=== PATIENT | female | born 1950 | race Caucasian/White ===

== ENCOUNTER 2021-08-06 20:02 | Inpatient (IN) | payer MEDICARE, OTHER, SELFPAY ==
[2021-08-06] VITALS (9 sets, daily range): BP systolic 85–104; BP diastolic 38–59; PULSE 96–100; RESP 20–24; TEMP 36.8–37.4; O2SAT 97; BMI 34.5
--- NOTE | 2021-08-06 | ECG_ITS ---
Test Reason : WEAKNESS Blood Pressure : / mmHG Vent. Rate : 098 BPM Atrial Rate : 098 BPM P-R Int : 150 ms QRS Dur : 102 ms QT Int : 362 ms P-R-T Axes : 054 016 -09 degrees QTc Int : 462 ms Normal sinus rhythm Nonspecific ST and T wave abnormality Abnormal ECG No previous ECGs available Referred By: Radha Yuan Electronically Signed By:YOHAN DENISE
--- NOTE | ~2021-08-06 | CT_ITS ---
EXAMINATION: CT ABDOMEN AND PELVIS WITHOUT CONTRAST CLINICAL INFORMATION: GI bleed. Drinker. Large liver. Rule out mass. COMPARISON: None TECHNIQUE: Multidetector volumetric imaging was performed from the superior aspect of the liver through the pubic symphysis. Sagittal and coronal reformatted images were obtained on the technologist's workstation. This CT examination was performed using dose optimization techniques as appropriate, variously including the following: *Automated exposure control *Adjustment of mA and/or kV according to patient size (this includes techniques or standardized protocols for targeted exams where dose is matched to indication/reason for exam; i.e. extremities or head) *Use of iterative reconstruction technique DLP: 654 mGy-cm FINDINGS: LUNG BASES: Bibasilar atelectasis noted. Coronary artery calcifications. LIVER, GALLBLADDER, AND BILIARY TREE: The liver is normal in size, shape, and attenuation. No focal hepatic lesion or biliary ductal dilatation is present. The gallbladder is unremarkable with no evidence of radiopaque gallstones, gallbladder wall thickening, or obvious pericholecystic inflammatory changes. PANCREAS: Unremarkable. SPLEEN: Unremarkable. ADRENAL GLANDS: Bilateral adrenal nodularity, meeting criteria for lipid rich adenomas. KIDNEYS AND URETERS: The kidneys are normal in size, shape, and attenuation. No hydronephrosis, hydroureter, or calculi seen. No perinephric stranding. BLADDER: Unremarkable. GASTROINTESTINAL TRACT: The stomach is unremarkable. Normal caliber small bowel. No obstruction. No colonic wall thickening or acute inflammation. Prominent sigmoid diverticulosis. No diverticulitis. There is a normal appendix. No free air or free fluid. ABDOMINAL WALL: No significant hernia is appreciated. LYMPH NODES: Normal. VASCULAR: Unremarkable. PELVIC VISCERA: The uterus and adnexa are unremarkable. OSSEOUS STRUCTURES: No acute or suspicious osseous abnormality. Moderate degenerative change throughout the spine. Mild degenerative changes in the hips. CT/CT abdomen pelvis wo con IMPRESSION: No suspicious findings in the abdomen or pelvis. No liver mass. Normal size liver. Colonic diverticulosis without diverticulitis.
--- NOTE | ~2021-08-06 | XR_ITS ---
EXAMINATION: XR CHEST CLINICAL INFORMATION: Shortness of breath COMPARISON: None TECHNIQUE: Frontal view of the chest was obtained. FINDINGS: No significant abnormality is noted involving the heart, lungs, mediastinum, bony thorax or soft tissues. XR/XR chest 1V IMPRESSION: Unremarkable examination.
--- NOTE | 2021-08-06 20:27 | PC.NURSE ---
at bedside for primary eval.
--- NOTE | 2021-08-06 20:42 | ED.AMS ---
HPI - Altered Mental Status General Chief Complaint: Altered Mental Status Stated Complaint: nausea vomiting x 1 day Time Seen by Provider: 08/06/21 20:19 Source: patient History of Present Illness HPI narrative: Patient is 71 years old presented today with having nausea vomiting diarrhea earlier as reported by family. Positive generalized malaise weakness. Patient lives with an elderly . Patient now denies that she has any nausea vomiting diarrhea. No fever no chills. No cough no congestion. No diaphoresis. Patient is from home. Denies any surgery done to her abdomen. Did not have her vaccine for coronavirus. No coughing no change in smell or taste. Positive generalized malaise. No pain on urination. Related Data Home Medications Medication Instructions Recorded Confirmed amlodipine 10 mg tablet 10 mg PO DAILY 08/06/21 08/06/21 aspirin 500 mg tablet 500 mg PO BID 08/06/21 08/06/21 cyanocobalamin (vitamin B-12) 500 500 mcg PO DAILY 08/06/21 08/06/21 mcg tablet (Vitamin B-12) lisinopril 40 mg tablet 40 mg PO DAILY 08/06/21 08/06/21 metoprolol tartrate 100 mg tablet 100 mg PO BID 08/06/21 08/06/21 Allergies Allergy/AdvReac Type Severity Reaction Status Date / Time No Known Allergies Allergy Verified 08/06/21 20:28 Review of Systems Review of Systems: No fever no chills no chest pain No diaphoresis All systems reviewed otherwise [facility] Past Medical History Medical History (Updated 08/07/21 @ 00:28 by Radha Yuan MD) Hyperlipidemia Hypertension Social History Social History Advance Directives: No Advance Directives Information Provided: Yes Physical Exam Vital Signs: Vital Signs: Last Vital Signs Temp 98.9 F 08/07/21 00:09 Pulse 99 08/07/21 00:09 Resp 20 08/07/21 00:09 BP 109/49 L 08/07/21 00:09 Pulse Ox 97 08/06/21 21:23 Body Mass Index 34.5 Appearance: Alert. Oriented self and to time No acute distress. Eyes: Pupils equal, round and reactive to light. ENT: Pharynx normal. Neck: Normal inspection. Neck supple. No lymph nodes noted. No crepitus CVS: Normal heart rate and rhythm. Pulses normal. Normal S1 and S2 Respiratory: No respiratory distress. Breath sounds normal. No Wheezing. No rales Abdomen: Soft and nontender. No rigidity. No distention. good BS x4 Skin: Skin warm and dry. Normal skin color. Normal skin turgor. Extremities: 3+ pitting edema bilateral lower extremity. Neurovascular intact to all extremities. No Lacerations. No Rash Neuro: Oriented to self and time. No motor deficit. No sensory deficit. Weakness in bilateral lower extremity. No slurred speech MDM - Altered Mental Status MDM Narrative Medical decision making narrative: Patient's initial blood pressure was 98/50. IV fluids ordered. Hemoglobin came back patient's hemoglobin is 3.4. Rectal exam shows melanotic stool. At this point discussed with patient. And family. Patient has a long history of drinking alcohol. Also has a long history of abusing aspirin pre taking about a g a day. Patient's BUN and creatinine is 41 and 0.6. Along with a melanotic stool consistent with having a significant upper GI bleed. Patient was started on Protonix IV 80 mg. Additional octreotide was given. Patient given 1 unit of uncross blood. As patient's blood pressure was low dropping down to 80/40. In addition patient had 2 more units to be transfused at out type and cross. Patient's case discussed with family. Understood the risk and benefit of the transfusion. Give permission for the transfusion. is a full code. Additional FFP and also platelets were ordered. Patient's blood pressure returning to 100/60. ICU notified. Patient will need further transfusion. An IJ was placed on the right side. Blood is going in at this point. Patient symptomatic be improving. After 2 units of blood patient symptoms improving. No distress. Awaiting ICU. Blood pressure 100/50. Lab Data Result diagrams: 08/06/21 21:55 08/06/21 21:55 Labs: Lab Results 08/06/21 08/06/21 08/06/21 Range/Units 21:08 21:16 21:16 WBC (4.8-10.8) X10*3/uL RBC (4.20-5.50) X10*6/uL Hgb (12.0-16.0) g/dl Hct (37-47) % MCV (80-98) fL MCH (27.0-33.0) pg MCHC (31.0-35.0) g/dl RDW (11.0-16.0) % Plt Count (160-400) X10*3/uL MPV (9.4-12.3) fL Immature Gran % (Auto) (0.0-0.4) % Neut % (Auto) (45-73) % Lymph % (Auto) (20-40) % [place] % (Auto) (2-11) % Eos % (Auto) (0-4) % Baso % (Auto) (0-2) % Lymph # (Auto) (1.2-4.9) X10*3/uL [place] # (Auto) (0.1-1.2) X10*3/uL Eos # (Auto) (0.0-0.4) X10*3/uL Baso # (Auto) (0.0-0.2) X10*3/uL Abs Immat Gran (auto) (0.00-0.03) X10*3/uL Absolute Neuts (auto) (2.0-8.3) X10*3/uL Absolute Nucleated RBC (0.0-0.012) X10*3/uL Nucleated RBC % (auto) (0.0-0.2) /100WBC Sodium (135-145) mmol/L Potassium (3.3-5.1) mmol/L Chloride (96-108) mmol/L Carbon Dioxide (22-29) mmol/L Anion Gap (12-20) BUN (9-16) mg/dL Creatinine (0.5-1.4) mg/dL Estim Creat Clear Calc Estimated GFR POC Glucose 99 (60-115) mg/dL Random Glucose (60-115) mg/dL Lactic Acid (0.5-2.0) mmol/L Calcium (8.4-10.2) mg/dL Total Bilirubin (0.0-1.0) mg/dL Direct Bilirubin (0.0-0.5) mg/dL AST (5-31) U/L ALT (0-31) U/L Alkaline Phosphatase (39-117) U/L Total Protein (6.5-8.0) g/dL Albumin (3.5-5.0) g/dL Urine Color YELLOW Urine Appearance CLEAR Urine pH 6.0 (5.0-8.0) Ur Specific [place] 1.010 (1.005-1.025) Urine Protein NEG (NEG-TRACE) MG/DL Urine Glucose (UA) NEG (NEG) MG/DL Urine Ketones NEG (NEG) MG/DL Urine Blood NEG (NEG) Urine Nitrite NEG (NEG) Ur Leukocyte Esterase NEG (NEG) Ethyl Alcohol mg/dL Coronavirus (PCR) NEGATIVE (Negative) Influenza Type A (PCR) NEGATIVE (Negative) Influenza Type B (PCR) NEGATIVE (Negative) RSV RNA Qual (PCR) NEGATIVE (Negative) Blood Type Antibody Screen Crossmatch 08/06/21 08/06/21 08/06/21 Range/Units 21:55 21:55 21:55 WBC 9.9 (4.8-10.8) X10*3/uL RBC 0.94 L (4.20-5.50) X10*6/uL Hgb 3.4 L* (12.0-16.0) g/dl Hct 10.4 L* (37-47) % MCV 110.6 H (80-98) fL MCH 36.2 H (27.0-33.0) pg MCHC 32.7 (31.0-35.0) g/dl RDW 15.3 (11.0-16.0) % Plt Count 184 (160-400) X10*3/uL MPV 9.6 (9.4-12.3) fL Immature Gran % (Auto) 0.7 H (0.0-0.4) % Neut % (Auto) 82.6 H (45-73) % Lymph % (Auto) 11.0 L (20-40) % [place] % (Auto) 5.6 (2-11) % Eos % (Auto) 0.0 (0-4) % Baso % (Auto) 0.1 (0-2) % Lymph # (Auto) 1.1 L (1.2-4.9) X10*3/uL [place] # (Auto) 0.6 (0.1-1.2) X10*3/uL Eos # (Auto) 0.0 (0.0-0.4) X10*3/uL Baso # (Auto) 0.0 (0.0-0.2) X10*3/uL Abs Immat Gran (auto) 0.07 H (0.00-0.03) X10*3/uL Absolute Neuts (auto) 8.2 (2.0-8.3) X10*3/uL Absolute Nucleated RBC 0.020 H (0.0-0.012) X10*3/uL Nucleated RBC % (auto) 0.2 (0.0-0.2) /100WBC Sodium 128 L (135-145) mmol/L Potassium 4.4 (3.3-5.1) mmol/L Chloride 100 (96-108) mmol/L Carbon Dioxide 21 L (22-29) mmol/L Anion Gap 11 L (12-20) BUN 41 H (9-16) mg/dL Creatinine 0.60 (0.5-1.4) mg/dL Estim Creat Clear Calc 87.3 Estimated GFR > 60 POC Glucose (60-115) mg/dL Random Glucose 118 H (60-115) mg/dL Lactic Acid (0.5-2.0) mmol/L Calcium 9.2 (8.4-10.2) mg/dL Total Bilirubin 0.3 (0.0-1.0) mg/dL Direct Bilirubin < 0.2 (0.0-0.5) mg/dL AST 20 (5-31) U/L ALT 14 (0-31) U/L Alkaline Phosphatase 45 (39-117) U/L Total Protein 4.8 L (6.5-8.0) g/dL Albumin 3.1 L (3.5-5.0) g/dL Urine Color Urine Appearance Urine pH (5.0-8.0) Ur Specific [place] (1.005-1.025) Urine Protein (NEG-TRACE) MG/DL Urine Glucose (UA) (NEG) MG/DL Urine Ketones (NEG) MG/DL Urine Blood (NEG) Urine Nitrite (NEG) Ur Leukocyte Esterase (NEG) Ethyl Alcohol < 10 mg/dL Coronavirus (PCR) (Negative) Influenza Type A (PCR) (Negative) Influenza Type B (PCR) (Negative) RSV RNA Qual (PCR) (Negative) Blood Type Antibody Screen Crossmatch 08/06/21 08/06/21 Range/Units 22:20 22:30 WBC (4.8-10.8) X10*3/uL RBC (4.20-5.50) X10*6/uL Hgb (12.0-16.0) g/dl Hct (37-47) % MCV (80-98) fL MCH (27.0-33.0) pg MCHC (31.0-35.0) g/dl RDW (11.0-16.0) % Plt Count (160-400) X10*3/uL MPV (9.4-12.3) fL Immature Gran % (Auto) (0.0-0.4) % Neut % (Auto) (45-73) % Lymph % (Auto) (20-40) % [place] % (Auto) (2-11) % Eos % (Auto) (0-4) % Baso % (Auto) (0-2) % Lymph # (Auto) (1.2-4.9) X10*3/uL [place] # (Auto) (0.1-1.2) X10*3/uL Eos # (Auto) (0.0-0.4) X10*3/uL Baso # (Auto) (0.0-0.2) X10*3/uL Abs Immat Gran (auto) (0.00-0.03) X10*3/uL Absolute Neuts (auto) (2.0-8.3) X10*3/uL Absolute Nucleated RBC (0.0-0.012) X10*3/uL Nucleated RBC % (auto) (0.0-0.2) /100WBC Sodium (135-145) mmol/L Potassium (3.3-5.1) mmol/L Chloride (96-108) mmol/L Carbon Dioxide (22-29) mmol/L Anion Gap (12-20) BUN (9-16) mg/dL Creatinine (0.5-1.4) mg/dL Estim Creat Clear Calc Estimated GFR POC Glucose (60-115) mg/dL Random Glucose (60-115) mg/dL Lactic Acid 1.8 (0.5-2.0) mmol/L Calcium (8.4-10.2) mg/dL Total Bilirubin (0.0-1.0) mg/dL Direct Bilirubin (0.0-0.5) mg/dL AST (5-31) U/L ALT (0-31) U/L Alkaline Phosphatase (39-117) U/L Total Protein (6.5-8.0) g/dL Albumin (3.5-5.0) g/dL Urine Color Urine Appearance Urine pH (5.0-8.0) Ur Specific [place] (1.005-1.025) Urine Protein (NEG-TRACE) MG/DL Urine Glucose (UA) (NEG) MG/DL Urine Ketones (NEG) MG/DL Urine Blood (NEG) Urine Nitrite (NEG) Ur Leukocyte Esterase (NEG) Ethyl Alcohol mg/dL Coronavirus (PCR) (Negative) Influenza Type A (PCR) (Negative) Influenza Type B (PCR) (Negative) RSV RNA Qual (PCR) (Negative) Blood Type O Negative Antibody Screen NEGATIVE Crossmatch See Detail Critical Care Time Critical Care Time Critical Care Time: Yes Total Critical Care Time: 120 Attestation: I have personally provided 120 minutes of critical care time exclusive of time spent on separately billable procedures. Time includes review of lab data, radiology results, discussion with consultants, and monitoring for potential decompensation. Interventions were performed as documented above Discharge Plan Discharge Clinical Impression: Acute GI bleeding Patient Disposition: Admitted As Inpatient
[2021-08-06] MEDS: 0.9 % Sodium Chloride 500 ML 999 ML IV (21:19)
--- NOTE | 2021-08-06 21:30 | PC.NURSE ---
Addendum entered by Any Kapadia 08/07/21 00:04: MD at bedside for OBS, obvious melena noted during exam. Per MD, no need to send OBS card. This RN chaperoning during exam, pt tolerating exam fair. Original Note: IV established, IVF infusing per MAR. Labs obtained and sent for analysis. Lab notifying this RN of critically low HgB, lab requesting redraw to confirm. EKG, labs, BCX, lactic and Covid swab obtained and sent.
[2021-08-06 21:43] LABS: Appearance Urine CLEAR; Color Urine YELLOW; Glucose Urine UA NEG (NEG); Leukocyte Esterase Urine NEG (NEG); Nitrite Urine NEG (NEG); Urine Blood NEG (NEG); Urine Ketones NEG (NEG); Urine Protein NEG (NEG-TRACE)
--- NOTE | 2021-08-06 22:00 | PC.NURSE ---
MD aware of hypotension.
[2021-08-06 22:01] LABS: MANUAL DIFF FLAG NO
[2021-08-06 22:12] LABS: Basophils Percent Auto 0.1 % (0-2); Imm Gran Abs Auto 0.07 X10*3/uL (0.00-0.03); Imm Gran Pct Auto 0.7 % (0.0-0.4); Lymphocytes Absolute Auto 1.1 X10*3/uL (1.2-4.9); Mean Corpuscular HGB Conc 32.7 g/dl (31.0-35.0); Mean Corpuscular Hemoglobin 36.2 pg (27.0-33.0); Mean Corpuscular Volume 110.6 fL (80-98); Mean Platelet Volume 9.6 fL (9.4-12.3); Monocytes Absolute Auto 0.6 X10*3/uL (0.1-1.2); Monocytes Percent Auto 5.6 % (2-11); NRBC Pct Auto 0.2 /100WBC (0.0-0.2); Neutrophils Absolute Auto 8.2 X10*3/uL (2.0-8.3); Neutrophils Percent Auto 82.6 % (45-73); Platelet Count 184 X10*3/uL (160-400); Red Blood Count 0.94 X10*6/uL (4.20-5.50); Red Cell Distribution Width 15.3 % (11.0-16.0); White Blood Count 9.9 X10*3/uL (4.8-10.8)
[2021-08-06 22:17] LABS: Hematocrit 10.4 % (37-47); Hemoglobin 3.4 g/dl (12.0-16.0)
[2021-08-06 22:27] LABS: Alanine Aminotransferase 14 U/L (0-31); Albumin Level 3.1 g/dL (3.5-5.0); Alkaline Phosphatase 45 U/L (39-117); Anion Gap 11 (12-20); Aspartate Amino Transferase 20 U/L (5-31); Bilirubin Direct < 0.2 mg/dL (0.0-0.5); Bilirubin Total 0.3 mg/dL (0.0-1.0); Blood Urea Nitrogen 41 mg/dL (9-16); Calcium 9.2 mg/dL (8.4-10.2); Carbon Dioxide 21 mmol/L (22-29); Chloride 100 mmol/L (96-108); Creatinine Clr Calc Pharmacy 87.3; Estimated Glomerular Filt Rate > 60; Glucose Random 118 mg/dL (60-115); Potassium 4.4 mmol/L (3.3-5.1); Sodium 128 mmol/L (135-145); Total Protein 4.8 g/dL (6.5-8.0)
[2021-08-06] MEDS: Pantoprazole Sodium 40 MG/10 ML VIAL 80 MG IVPUSH (22:35)
[2021-08-06] MEDS: Octreotide Acetate 100 MCG/ML AMPUL IVPUSH (22:35)
[2021-08-06] MEDS: 0.9 % Sodium Chloride 1,000 ML 999 ML IV (22:36)
[2021-08-06 22:47] LABS: Ethanol < 10 mg/dL
--- NOTE | 2021-08-06 22:52 | PC.NURSE ---
MD at bedside, plan for ICU admission.
--- NOTE | 2021-08-06 22:56 | PC.NURSE ---
ICU PA at bedside for primary eval.
[2021-08-06 22:58] LABS: Lactic Acid 1.8 mmol/L (0.5-2.0)
--- NOTE | 2021-08-06 23:05 | PC.NURSE ---
Jacinto Mario, () to be called with updates and plan of care.
[2021-08-06 23:13] LABS: Influenza A PCR NEGATIVE (Negative); Influenza B PCR NEGATIVE (Negative); Resp Syncy Virus RNA Qual PCR NEGATIVE (Negative); SARS COV2 PCR INHOUSE NEGATIVE (Negative)
--- NOTE | 2021-08-06 23:17 | PM.CCHP ---
History of Present Illness Date of Service: 08/06/21 Attending physician on admission: Iker Yang Chief Complaint: Chief complaint: Hypovolemic shock, Acute on chronic anemia / UGIB HPI: ?71-year-old female with underlying history of hypertension, B12 deficiency, morbid obesity with BMI of 35, history of chronic alcohol abuse as she drinks over 0.5 gal of wine daily, presented to the emergency room with her with complaints of nausea, vomiting and diarrhea.? Patient has had generalized malaise for approximately 5-7 days and reports she has been sleeping a lot and has been difficult to arouse over last couple of days this has gotten worse.? He reports noticing black tarry stools in the toilet which according to the patient has been present for about 5 days or so.? Patient denies abdominal pain, admits taking aspirin, has never had a GI bleed before, In the emergency room the patient was noted to be confused, hypotensive with blood pressure of 96/42 but not tachycardic, other vital signs were stable.? She had did appear pale, her laboratory workup revealed white count of 9.9, hemoglobin of 3.4 and hematocrit of 10.4 respectively, platelets 184, MCV 110, sodium 128, anion gap of 11, carbon dioxide 21, BUN 41, creatinine 0.60, random glucose 118.? Lactic acid 1.8.? Albumin 3.1.? Urinalysis negative.? Respiratory panel negative.? Rectal exam was done but he was a very eminent the patient had melena leak black stools and was not sent for occult blood study.? Patient received 1 unit of universal blood products in the ER and albumin, 2 L of IV fluids and despite of this the patient continues to be hypotensive however so long she lays down she denies any symptomatology at this point. ROS:? Denies headache, no visual changes, ?admits to lightheadedness, but no dizziness, no history of seizures or strokes, no history of eye or ear problems, no sore throat, cough or sputum production, denies shortness of breath, denies chest pain, palpitations, no coronary disease, pulmonary disease, no hemoptysis, Admits to melena stools x 5 to 7 days, no hematochezia,no liver or kidney problems, no dysuria, hematuria, she has had crhonic leg edema for > 20 years; ?leg swelling, no history of DVT or PE.? She has no travel and has not been contact with anybody with? COVID.? All other review of systems negative. Past Medical History: ?As above Past Surgical History:? None Family history: ?Noncontributory Social History:? Lives at home with her on a 3rd floor of the house, does have plenty of stairs, does not use a walker or cane, denies tobacco or drugs.? Patient does have a long history of alcohol consumption, did not want to disclose how many years but her states that she has been drinking for more than a decade more than half of gal of wine daily, last drink was yesterday. CODE STATUS: ?Full code Allergies: ?Morphine (hives and difficulty breathing), penicillin (itching). Home Medications:? Please see med rec PHYSICAL EXAM: VS: ?BP 90/44, heart rate 100, respirations 20, O2 sat 96% on room air, temperature 98.1? General:? Alert oriented x3 no acute distress.? Although intermittently appears to get slightly confused and self corrects.? Speaking full sentences.? Speech is well articulated, thought process is coherent.? Following all commands. Skin:? Facial skin color is pale, Hyperpigmented changes of the bilateral lower extremities right more than left over the tibial areas without any ulcerations or blisters.? 1+ pitting edema bilaterally up to mid tibia, otherwise intact. HEENT:? Head is normocephalic, atraumatic, pupils equal round reactive to light accommodation bilaterally.? Extraocular movements appear intact.? Buccal mucosa is dry, Neck is supple without lymphadenopathy. Cardiac:? Clear S1-S2, no murmurs rubs or gallops. Pulmonary:? Clear to auscultation, no wheezes, rales or rhonchi. Abdomen:? Protuberant, positive bowel sounds in all 4 quadrants.? Soft, nontender, no rebound or guarding.? Musculoskeletal:? Moving all 4 extremities upon request a major joints, there is no crepitus or tenderness.? The strength is 5/5 bilaterally and throughout all 4 extremities.? There is no leg edema , no calf tenderness , no leg asymmetry.? Gait not assessed at this point. Neurologic:? As above, cranial nerves 2-12 are grossly intact.? No focal deficits noted. Motor strength as above.? Vascular:? 2+ pulses upper and lower extremities distally. SIGNIFICANT LABORATORY DATA:? As above REVIEW OF IMAGES: CT abdomen and pelvis impression No suspicious findings in the abdomen or pelvis.? No liver mass.? Normal size liver.? Colonic diverticulosis without diverticulitis. EKG REVIEW:? Normal sinus rhythm rate 98 beats per minute.? Minimal ST depression in the precordial leads, no ST elevation.? QT 362. No comparison. ASSESSMENT AND PLAN: 1.Hypovolemic shock in the setting of acute on chronic upper GI bleed on patient with daily aspirin intake and alcoholism history. 3. Hypotension due to above despite of 2 L of fluid, albumin and 3 units of packed red blood cells 4. Melena due to upper GI bleed source unknown 5. Chronic alcoholism at risk of withdrawal symptoms 6. Chronic leg edema 7. Metabolic encephalopathy 8. Macrocytic anemia likely due to alcohol abuse rule out B12 and folate deficiency 9. Hypo smaller hypovolemic hyponatremia due to volume depletion 10. Acute kidney injury with BUN to creatinine ratio of 69 11. Hypoalbuminemia 12. Chronic leg edema likely due to hypoalbuminemia but I wonder if there is a lymphedema component. Admit to ICU, vital signs, close monitoring, I's and O's, patient refused a Arrington catheter, she did receive 1 unit of unmatched universal blood, will continue with transfusion, my sense is that she will need at least 5-6 units of it, I do not think the patient needs platelets or fresh frozen plasma this point.? I did check her INR in is normal I do not think she needs vitamin K at this point, there is no evidence of acute hemorrhage.? Patient is getting very irritated am concerned about withdrawal symptoms, I will start her on Librium, folate, thiamine, multivitamin and will check levels to further rule out the possibility of deficiency of these products contributing to macrocytosis.? Will recheck H&H and metabolic panel tonight, will add Mag, phos, thiamine and B12 levels. ?after transfusion as well as tomorrow Keep patient NPO, GI consult in the morning. ?Will hold all her blood pressure medications and aspirin. Will order a CT of the abdomen pelvis to rule out possibility of masses, significant liver abnormalities or stomach changes that could further justify her significant anemia and bleeding. GI PROPHYLAXIS:? IV ppi and octreotide drip DVT PROPHYLAXIS:? Pneumatic stockings; pt with UGIB Critical care time used for critical evaluation of this patient, diagnosis, treatment and coordination of care, review her records and documentation TOTAL CRITICAL CARE TIME 90 MIN . Patient's care was discussed in detail with Dr. Yang.? He is aware of all the above as well as the plan of care for this patient. PMFSH Past Medical History Medical History (Updated 08/07/21 @ 01:48 by Mary Rendon RN) EtOH dependence Hyperlipidemia Hypertension Surgical History Surgical History (Updated 08/07/21 @ 01:48 by Mary Rendon, RN) History of delivery Social History Social History Household Members: Spouse Housing: House Do you presently have visiting nurse or other home services: No Patient Tobacco Use Status: Former Tobacco user Use of substances other than those prescribed or required for medical reasons: No Have you been hit, kicked, punched, or otherwise hurt by someone within the past year? If so, by whom?: No Do you feel safe in your current relationship?: Yes Is there a partner from a previous relationship who is making you feel unsafe now?: No Are you made to feel afraid or neglected: No Advance Directives: No Advance Directives Information Provided: Yes Advance Directives on File: No Do you have thoughts of harming others: None Do you have a plan to hurt others: No Plan Recently lost weight without trying: Unsure Nutrition Risks: On aspiration precautions Patient : No : No Poor oral hygiene: No Meds Allergies Allergy/AdvReac Type Severity Reaction Status Date / Time No Known Allergies Allergy Verified 08/06/21 20:28 Active Medications: Current Medications Pantoprazole Sodium 80 mg/ (Sodium Chloride) 100 mls @ 10 mls/hr IV .Q10H KEYON Octreotide Acetate 500 mcg/ (Sodium Chloride) 501 mls @ 50.1 mls/hr IVCONT .Q10H KEYON Albumin Human ([place]in 25 %) 100 mls @ 100 mls/hr IV Q1H KEYON Stop: 08/07/21 01:14 Home Medications Medication Instructions Recorded Confirmed Last Taken Type amlodipine 10 mg tablet 10 mg PO DAILY 08/06/21 08/06/21 Unknown History aspirin 500 mg tablet 500 mg PO BID 08/06/21 08/06/21 Unknown History cyanocobalamin (vitamin B-12) 500 500 mcg PO DAILY 08/06/21 08/06/21 Unknown History mcg tablet (Vitamin B-12) lisinopril 40 mg tablet 40 mg PO DAILY 08/06/21 08/06/21 Unknown History metoprolol tartrate 100 mg tablet 100 mg PO BID 08/06/21 08/06/21 Unknown History Physical Exam Vital Signs: Vital Signs: Last Vital Signs Temp 99.4 F 08/06/21 23:02 Pulse 100 08/06/21 23:02 Resp 20 08/06/21 23:02 BP 101/38 L 08/06/21 23:02 Pulse Ox 97 08/06/21 21:23 Body Mass Index 34.5 Results Labs CBC and Chem 7: 08/06/21 21:55 08/06/21 21:55 Labs: Laboratory Results - last 24 hr 08/06/21 08/06/21 08/06/21 21:16 21:55 21:55 MCV 110.6 H MCH 36.2 H MCHC 32.7 RDW 15.3 Plt Count 184 MPV 9.6 Immature Gran % (Auto) 0.7 H Neut % (Auto) 82.6 H Lymph % (Auto) 11.0 L [place] % (Auto) 5.6 Eos % (Auto) 0.0 Baso % (Auto) 0.1 Lymph # (Auto) 1.1 L [place] # (Auto) 0.6 Eos # (Auto) 0.0 Baso # (Auto) 0.0 Abs Immat Gran (auto) 0.07 H Absolute Neuts (auto) 8.2 Absolute Nucleated RBC 0.020 H Nucleated RBC % (auto) 0.2 Anion Gap 11 L Estim Creat Clear Calc 87.3 Estimated GFR > 60 Random Glucose 118 H Lactic Acid Calcium 9.2 Total Bilirubin 0.3 Direct Bilirubin < 0.2 AST 20 ALT 14 Alkaline Phosphatase 45 Total Protein 4.8 L Albumin 3.1 L Urine Color YELLOW Urine Appearance CLEAR Urine pH 6.0 Ur Specific [place] 1.010 Urine Protein NEG Urine Glucose (UA) NEG Urine Ketones NEG Urine Blood NEG Urine Nitrite NEG Ur Leukocyte Esterase NEG Ethyl Alcohol Blood Type Antibody Screen Crossmatch 08/06/21 08/06/21 08/06/21 21:55 22:20 22:30 MCV MCH MCHC RDW Plt Count MPV Immature Gran % (Auto) Neut % (Auto) Lymph % (Auto) [place] % (Auto) Eos % (Auto) Baso % (Auto) Lymph # (Auto) [place] # (Auto) Eos # (Auto) Baso # (Auto) Abs Immat Gran (auto) Absolute Neuts (auto) Absolute Nucleated RBC Nucleated RBC % (auto) Anion Gap Estim Creat Clear Calc Estimated GFR Random Glucose Lactic Acid 1.8 Calcium Total Bilirubin Direct Bilirubin AST ALT Alkaline Phosphatase Total Protein Albumin Urine Color Urine Appearance Urine pH Ur Specific [place] Urine Protein Urine Glucose (UA) Urine Ketones Urine Blood Urine Nitrite Ur Leukocyte Esterase Ethyl Alcohol < 10 Blood Type O Negative Antibody Screen NEGATIVE Crossmatch See Detail Imaging Radiologist's Impressions: Impressions Chest X-Ray 08/06/21 20:37 IMPRESSION: Unremarkable examination.
--- NOTE | 2021-08-06 23:19 | PC.NURSE ---
Second unit infusing @ 7269.
[2021-08-06 23:24] LABS: INTERNATIONAL NORM RATIO 1.2 (0.9-1.1); Prothrombin Time 13.2 SEC (9.9-13.0)
[2021-08-06] MEDS: Pantoprazole Sodium 80 MG in 0.9 % Sodium Chloride 80 ML 10 MG IV (23:34)
[2021-08-06] MEDS: Albumin Human 25 % 100 ML IV (23:48)
[2021-08-07] VITALS (25 sets, daily range): BP systolic 88–133; BP diastolic 28–104; PULSE 77–109; RESP 14–24; TEMP 36.6–37.2; O2SAT 90–98; BMI 35.7
[2021-08-07 00:03] LABS: Glucose, Whole Blood 99 mg/dL (60-115)
--- NOTE | 2021-08-07 00:06 | PC.NURSE ---
Third unit infusing @ 0617.
--- NOTE | 2021-08-07 00:10 | PC.NURSE ---
This RN attempting to complete infusion of third unit. Third unit infused @ 0009, VSS. This RN unable to end transfusion, it states unit locked by Blood Bank.
--- NOTE | 2021-08-07 00:19 | PC.NURSE ---
Report given to ICU, ALEXEY Hernandez. Plan for transport to CT and then to ICU.
--- NOTE | 2021-08-07 00:30 | PC.NURSE ---
Pt transferred to CT and to ICU. Third unit continues infusing at this time.
[2021-08-07] MEDS: Octreotide Acetate 500 MCG in 0.9 % Sodium Chloride 500 ML 50.1 MCG IVCONT ×2 (01:24→09:33)
[2021-08-07] MEDS: Albumin Human 25 % 100 ML IV (01:25)
[2021-08-07 01:59] LABS: Hematocrit 21.6 % (37-47); Hemoglobin 7.2 g/dl (12.0-16.0)
[2021-08-07 02:00] LABS: Magnesium 1.5 mg/dL (1.6-2.6)
[2021-08-07 02:41] LABS: Anion Gap 12 (12-20); Blood Urea Nitrogen 36 mg/dL (9-16); Calcium 8.5 mg/dL (8.4-10.2); Carbon Dioxide 19 mmol/L (22-29); Chloride 102 mmol/L (96-108); Creatinine Clr Calc Pharmacy 83.1; Estimated Glomerular Filt Rate > 60; Glucose Fasting 152 mg/dL (60-99); Potassium 4.3 mmol/L (3.3-5.1); Sodium 129 mmol/L (135-145)
[2021-08-07] MEDS: chlordiazePOXIDE HCl 25 MG CAPSULE PO ×4 (03:02→20:33)
[2021-08-07 04:43] LABS: Folate 7.6 ng/mL (> or = 4.0); Vitamin B12 611 pg/mL (200-900)
[2021-08-07 05:44] LABS: MANUAL DIFF FLAG NO
[2021-08-07 05:50] LABS: Basophils Percent Auto 0.2 % (0-2); Hematocrit 23.1 % (37-47); Hemoglobin 7.9 g/dl (12.0-16.0); Lymphocytes Absolute Auto 1.1 X10*3/uL (1.2-4.9); Lymphocytes Percent Auto 10.7 % (20-40); Mean Corpuscular HGB Conc 34.2 g/dl (31.0-35.0); Mean Corpuscular Hemoglobin 34.1 pg (27.0-33.0); Mean Corpuscular Volume 99.6 fL (80-98); Mean Platelet Volume 8.9 fL (9.4-12.3); Monocytes Absolute Auto 0.6 X10*3/uL (0.1-1.2); Monocytes Percent Auto 5.6 % (2-11); NRBC Pct Auto 0.4 /100WBC (0.0-0.2); Neutrophils Absolute Auto 8.2 X10*3/uL (2.0-8.3); Neutrophils Percent Auto 82.5 % (45-73); Platelet Count 116 X10*3/uL (160-400); Red Blood Count 2.32 X10*6/uL (4.20-5.50); Red Cell Distribution Width 14.6 % (11.0-16.0)
--- NOTE | 2021-08-07 06:05 | PC.NURSE ---
Patient admitted via ED approx 0100. Oriented x3, vague to situation. Anxious/resistive to care at times. Recieved 4 units RBCS total between ED and ICU. Hemodynamically stable. Respirations unlabored. Lungs clear. Desats with snoring while sleeping. Purewick draining adequate urine. No stool. Fungal groin/abdominal folds. Requested nystatin from PA. LE 4+ pitting edema with bilat brawny discoloration. No open skin areas.
[2021-08-07 06:14] LABS: Alanine Aminotransferase 14 U/L (0-31); Albumin Level 3.3 g/dL (3.5-5.0); Alkaline Phosphatase 41 U/L (39-117); Anion Gap 11 (12-20); Aspartate Amino Transferase 22 U/L (5-31); Bilirubin Total 1.8 mg/dL (0.0-1.0); Blood Urea Nitrogen 32 mg/dL (9-16); Calcium 8.3 mg/dL (8.4-10.2); Carbon Dioxide 20 mmol/L (22-29); Chloride 103 mmol/L (96-108); Creatinine Clr Calc Pharmacy 86.1; Estimated Glomerular Filt Rate > 60; Glucose Random 173 mg/dL (60-115); Potassium 4.3 mmol/L (3.3-5.1); Sodium 130 mmol/L (135-145); Total Protein 4.7 g/dL (6.5-8.0)
[2021-08-07] MEDS: Phenylephrine HCL 20 MG in 0.9 % Sodium Chloride 250 ML 33.53 MG IVCONT (07:58)
--- NOTE | 2021-08-07 09:11 | MHC.CM.PN ---
PATIENT LIVES WITH HER . SHE AGREES THAT (SAMANTHA) SHOULD BE HER HCP AGENT. PER CONVERSATION WITH THIS HOTEL DESK CLERK, DOCUMENT WILL BE COMPLETED AND SIGNED ONCE BRINGS HER READING GLASSES PATIENT ALSO WANTS TO ADD HER SON, STEFFANY, BUT DOES NOT WANT OT GIVE HIS CONTACT NUMBER AT THIS TIME. SHE ALSO ASKS THAT CASE MANAGEMENT DOES NOT SPEAK WITH HIM ABOUT HER ADMISSION [place] [facility] [place] PATIENT USES NO CNAE OR WALKER AND HAS NO VNA SERVICES, NOR DOES SHE WANT ANY AT TIME OF DISCHARGE. PCP IS DR CARDOZA AT [facility]. UPDATE MADE TO CASE MANAGEMENT OFFICE IMM 08/07 IN CHART. D
--- NOTE | 2021-08-07 09:34 | P.CDIC_ITS ---
CDI Concurrent Query Documentation Clarification: PHYSICIAN'S DOCUMENTATION REQUEST Date of Query: 08/07/21 0935 Patient Name: Cindy Mario Admit Date: 08/06/21 Dear Doctor, A review of the medical record indicates additional documentation may be needed. Please review below and update the documentation accordingly. Clinical Indicators: Risk Factors/Clinical Indicators/Treatments Hypovolemic shock in setting of acute on chronic upper GI bleed due to aspirin and alcoholism. BP 101/38 L Transfuse 1 unit blood Melena due to upper GI bleed, source unknown. Hold BP medication and aspirin. Based on the above, could you clarify in the Progress Notes which of the following is the most likely type of anemia you are evaluating, treating, and/or monitoring? * Acute blood loss anemia * Acute on chronic blood loss anemia * Chronic iron deficiency anemia due to blood loss * Other ? please specify * Unable to determine Use of terms such as suspected, likely, concern for, or probable (associated with a specific diagnosis that is being evaluated, monitored, or treated as if it exists) are acceptable and can be coded in the inpatient setting, when documented at the time of discharge. Thank you, Galina [place]en[place] [facility], CDIS Extension: [phone] Please use your independent medical judgment in providing your response. THIS QUERY IS PART OF THE PERMANENT MEDICAL RECORD Provider Response: Other Other Diagnosis: Subacute blood loss anemia
[2021-08-07] MEDS: Pantoprazole Sodium 80 MG in 0.9 % Sodium Chloride 80 ML 10 MG IV ×2 (09:35→21:22)
[2021-08-07] MEDS: Folic Acid 1 MG in 0.9 % Sodium Chloride 50 ML 100.4 MG IV (09:40)
[2021-08-07] MEDS: Thiamine HCL 100 MG in 0.9 % Sodium Chloride 100 ML 202 MG IV (09:51)
[2021-08-07] MEDS: Multivitamin TABLET 1 TAB PO (09:55)
--- NOTE | 2021-08-07 10:15 | PM.GICN ---
History of Present Illness Data of Consult Service Date: 08/07/21 Requesting physician: Rohit Olivas Primary Care Provider: Unknown Physician HPI Reason for consult: GI Bleed, alcoholic liver disease 71 YF with hypertension, B12 deficiency, obesity (BMI of 35), history of chronic alcohol abuse seen at [facility] ED yesterday with nausea, vomiting and diarrhea.? 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 He reported noticing black tarry stools for the past 5 days.? Patient denies abdominal pain, and past hx of PUD or GI bleeding.? Pt reports drinking 4 glasses of wine daily (her stated that she drinks over 0.5 gal of wine daily) In the ER, the patient appeared to be pale, confused, hypotensive with blood pressure of 96/42 but not tachycardic, other vital signs were stable.? Laboratory workup revealed white count of 9.9, hemoglobin of 3.4 and hematocrit of 10.4 respectively, platelets 184, MCV 110, sodium 128, anion gap of 11, carbon dioxide 21, BUN 41, creatinine 0.60, random glucose 118.? Lactic acid 1.8.? Albumin 3.1.? Urinalysis negative.? Respiratory panel negative.? Rectal exam was done but he was a very eminent the patient had melena leak black stools and was not sent for occult blood study.? Patient received 1 unit of universal blood products in the ER and albumin, 2 L of IV fluids and was admitted to ICU. Pt is and lives with her and has a son. 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 Patient denies known family history of colon polyps, colon cancer or other GI malignancies. Pt has had crhonic leg edema for > 20 years; ?leg swelling, no history of DVT or PE.? She has no travel and has not been contact with anybody with? COVID. PAST EGD/COLONOSCOPY: Reports having an EGD several yrs ago. Last colonoscopy 10 yrs ago - scheduled for repeat colon later this year. IMAGING STUDIES: 08/06/[address] SCAN SHOWED: No suspicious findings in the abdomen or pelvis. No liver mass. Normal size liver. Colonic diverticulosis without diverticulitis.? Review of Systems Constitutional: Constitutional: Reports fatigue, Denies fever(s), Denies headache(s), Reports lethargy and Denies weight loss Eyes: Eyes: Denies eye discharge and Denies irritation ENT: Reports Normal hearing present, Denies dysphagia, Denies dizziness and Denies headache(s) Cardiovascular: Cardiovascular: Denies chest pain, Reports leg edema and Denies dyspnea on exertion Respiratory: Respiratory: Denies cough, Denies dyspnea on exertion and Denies wheezing Gastrointestinal: Gastrointestinal: Denies abdominal pain, Reports melena, Denies change in bowel habits, Denies dysphagia, Denies heartburn, Reports diarrhea, Reports nausea and Reports vomiting Genitourinary: Genitourinary: Denies difficulty voiding and Denies dysuria Musculoskeletal: Musculoskeletal: Denies back pain and Denies arthralgias Integumentary/Breasts: Skin/Breast: Denies pruritus, Denies rash and Denies jaundice Neurologic: Reports Normal hearing present, Denies Abnormal speech present, Denies dizziness, Denies headache(s) and Denies seizure-like activity Psychiatric: Psychiatric: Denies anxiety, Denies depression and Denies panic attacks Endocrine: Endocrine: Denies cold intolerance, Reports fatigue, Denies flushing and Denies heat intolerance Hematologic/Lymphatic: Hematologic/Lymphatic: Denies easy bleeding and Denies easy bruising Allergic/Immunologic: Allergic/Immunologic: Denies wheezing PMFSH Past Medical History Medical History (Updated 08/07/21 @ 13:04 by Hardeep Rivers MD) EtOH dependence Hyperlipidemia Hypertension Surgical History Surgical History (Updated 08/07/21 @ 01:48 by Mary Rendon RN) History of delivery Social History Social History Household Members: Spouse Housing: House Do you presently have visiting nurse or other home services: No Patient Tobacco Use Status: Former Tobacco user Use of substances other than those prescribed or required for medical reasons: No Currently Displaying Signs/Symptoms of Drug Intoxication Withdrawal: No Have you been hit, kicked, punched, or otherwise hurt by someone within the past year? If so, by whom?: No Do you feel safe in your current relationship?: Yes Is there a partner from a previous relationship who is making you feel unsafe now?: No Are you made to feel afraid or neglected: No Advance Directives: No Advance Directives Information Provided: Yes Advance Directives on File: No Do you have thoughts of harming others: None Do you have a plan to hurt others: No Plan Recently lost weight without trying: Unsure Nutrition Risks: On aspiration precautions Patient : No : No Poor oral hygiene: No service: No Current occupational status: retired [employer] Allergies Allergy/AdvReac Type Severity Reaction Status Date / Time No Known Allergies Allergy Verified 08/06/21 20:28 Active Medications: Current Medications Chlordiazepoxide HCl (Chlordiazepoxide Hcl 25 Mg Capsule) 25 mg PO TID [facility] Last Admin: 08/07/21 09:55 Dose: 25 mg Documented by: Pantoprazole Sodium 80 mg/ (Sodium Chloride) 100 mls @ 10 mls/hr IV .Q10H KEYON Last Admin: 08/07/21 09:35 Dose: 8 mg/hr, 10 mls/hr Documented by: Octreotide Acetate 500 mcg/ (Sodium Chloride) 501 mls @ 50.1 mls/hr IVCONT .Q10H KEYON Last Admin: 08/07/21 09:33 Dose: 50 mcg/hr, 50.1 mls/hr Documented by: Thiamine HCl 100 mg/ Sodium (Chloride) 101 mls @ 202 mls/hr IV DAILY KEYON Last Admin: 08/07/21 09:51 Dose: 202 mls/hr Documented by: Folic Acid 1 mg/ Sodium (Chloride) 50.2 mls @ 100.4 mls/hr IV DAILY [facility] Stop: 08/09/21 09:29 Last Infusion: 08/07/21 10:13 Dose: Infused Documented by: Phenylephrine HCl 20 mg/ (Sodium Chloride) 252 mls @ 0 mls/hr IVCONT .Q0M [facility]; Protocol Last Admin: 08/07/21 07:58 Dose: 0.5 mcg/kg/min, 33.53 mls/hr Documented by: Multivitamins/Vitamin C (Multivitamin Tablet) 1 tab PO DAILY [facility] Last Admin: 08/07/21 09:55 Dose: 1 tab Documented by: Home Medications Medication Instructions Recorded Confirmed Last Taken Type amlodipine 10 mg tablet 10 mg PO DAILY 08/06/21 08/06/21 Unknown History aspirin 500 mg tablet 500 mg PO BID 08/06/21 08/06/21 Unknown History cyanocobalamin (vitamin B-12) 500 500 mcg PO DAILY 08/06/21 08/06/21 Unknown History mcg tablet (Vitamin B-12) lisinopril 40 mg tablet 40 mg PO DAILY 08/06/21 08/06/21 Unknown History metoprolol tartrate 100 mg tablet 100 mg PO BID 08/06/21 08/06/21 Unknown History Physical Exam Vital Signs: Vital Signs: Last Vital Signs Temp 97.8 F 08/07/21 08:00 Pulse 91 08/07/21 09:00 Resp 18 08/07/21 09:00 BP 122/104 H 08/07/21 09:00 Pulse Ox 93 08/07/21 09:00 Body Mass Index 35.7 Const: General: healthy appearing and no acute distress Nutritional Appearance: average body habitus Orientation/consciousness: patient oriented x3 Limitations: no limitations HENMT: Head: Yes normal to inspection Ears: hearing grossly normal bilaterally Mouth: Normal oral and palatal mucosa present Eyes: Sclerae: sclerae normal Pupils: Equal, round and reactive pupils present Neck: Neck: Yes normal visual inspection Chest: Chest palpation & inspection: normal inspection of the chest Resp: Effort & Inspection: normal respiratory effort Auscultation: clear to auscultation bilaterally Cardio: Palpation: normal PMI Rate: regular rate Rhythm: regular rhythm Heart sounds: S1 normal heart sound present, S2 normal heart sound present and no murmurs GI: Palpation (GI): Soft to palpation, nontender and No hepatosplenomegaly present Auscultation: normal bowel sounds Rectal Exam - Female: deferred Skin: General skin exam: no rashes or lesions noted Neuro: General: patient oriented x3, gait normal and moves all extremities Cranial nerves: Yes Equal, round and reactive pupils present and Yes Normal hearing present Speech: No Abnormal speech present Extrem: General: Yes pedal edema (Bilateral) Psych: Appearance: grossly normal Mental Status: mental status grossly normal Results Labs CBC & Chem 7: 08/09/21 05:24 08/08/21 05:49 Labs: Short CBC 08/06/21 08/07/21 08/07/21 Range/Units 21:55 01:44 05:31 WBC 9.9 10.0 (4.8-10.8) X10*3/uL Hgb 3.4 L* 7.2 L D 7.9 L (12.0-16.0) g/dl Hct 10.4 L* 21.6 L D 23.1 L (37-47) % Plt Count 184 116 L D (160-400) X10*3/uL BMP 08/06/21 08/07/21 08/07/21 21:55 02:10 05:31 Sodium 128 L 129 L 130 L Potassium 4.4 4.3 4.3 Chloride 100 102 103 Carbon Dioxide 21 L 19 L 20 L BUN 41 H 36 H 32 H Creatinine 0.60 0.63 0.62 Calcium 9.2 8.5 D 8.3 L Liver Function 08/06/21 08/07/21 Range/Units 21:55 05:31 Total Bilirubin 0.3 1.8 H (0.0-1.0) mg/dL Direct Bilirubin < 0.2 (0.0-0.5) mg/dL AST 20 22 (5-31) U/L ALT 14 14 (0-31) U/L Alkaline Phosphatase 45 41 (39-117) U/L Albumin 3.1 L 3.3 L (3.5-5.0) g/dL Urine 08/06/21 Range/Units 21:16 Urine Color YELLOW Urine Appearance CLEAR Urine pH 6.0 (5.0-8.0) Ur Specific [place] 1.010 (1.005-1.025) Urine Protein NEG (NEG-TRACE) MG/DL Urine Glucose (UA) NEG (NEG) MG/DL Assessment and Plan (1) Acute GI bleeding: Status: Acute (2) Alcohol abuse: Status: Acute 71 YF with hypertension, B12 deficiency, obesity (BMI of 35), history of chronic alcohol abuse admitted with nausea, vomiting and diarrhea with black tarry stools for the past 5 days.? H & H showed severe anemia. Pt admits to taking 2 aspirins daily at bedtime. Pt most likely has an UGI bleed from peptic ulcer disease, alcoholic gastritis, erosive esophagitis or Thelma-Kinney tear. RECOMMENDATIONS: 1. Monitor H & H twice daily and transfuse prn. 2. Continue IV PPI 3. Proceed with EGD - scheduled at 2:30 pm today. EGD procedure and potential complications including bleeding, perforation, drug reaction and aspiration were reviewed with the patient. Procedures Date of Service Date of Service: 08/07/21
--- NOTE | 2021-08-07 12:58 | PM.CCPN ---
Subjective Subjective Date of Service: 08/07/21 Interval History: 71-year-old female chronic high volume alcoholic approximately 1.5 gal per day of wine never had withdrawal issues but she is now at least 36 hours since last drink with a negative alcohol level and currently oriented and not displaying any signs of physical withdrawal but presented with melanotic stool and hypotension with hemoglobin of 3.4 has since been transfused 3 units of packed red cells current hemoglobin 8.5 and she is pending upper endoscopy with GI Not on any pressors with blood pressure of 120 systolic and sinus rhythm and heart rate 80 oxygen saturation 94% Critical Care Time (minutes): 35 Physical Exam Vital Signs: Vital Signs: Last Vital Signs Temp 98.1 F 08/07/21 11:00 Pulse 104 H 08/07/21 12:00 Resp 16 08/07/21 12:00 BP 116/52 L 08/07/21 12:00 Pulse Ox 96 08/07/21 12:00 Body Mass Index 35.7 Oriented and nonfocal neurologically Cardiac exam with no neck vein distension and good bilateral carotid upstrokes Chest clear both on chest x-ray and exam with no adventitious sounds Abdomen soft good bowel sounds no organomegaly Peripheral edema but no evidence of livedo or acrocyanosis Objective Data Labs CBC & Chem 7: 08/07/21 05:31 08/07/21 05:31 Labs: Laboratory Results - last 24 hr 08/06/21 08/06/21 08/06/21 21:08 21:16 21:16 WBC RBC Hgb Hct MCV MCH MCHC RDW Plt Count MPV Immature Gran % (Auto) Neut % (Auto) Lymph % (Auto) [place] % (Auto) Eos % (Auto) Baso % (Auto) Lymph # (Auto) [place] # (Auto) Eos # (Auto) Baso # (Auto) Abs Immat Gran (auto) Absolute Neuts (auto) Absolute Nucleated RBC Nucleated RBC % (auto) Smear Path Review PT INR Sodium Potassium Chloride Carbon Dioxide Anion Gap BUN Creatinine Estim Creat Clear Calc Estimated GFR POC Glucose 99 Random Glucose Fasting Glucose Lactic Acid Calcium Phosphorus Magnesium Total Bilirubin Direct Bilirubin AST ALT Alkaline Phosphatase Total Protein Albumin Vitamin B12 Folate Urine Color YELLOW Urine Appearance CLEAR Urine pH 6.0 Ur Specific [place] 1.010 Urine Protein NEG Urine Glucose (UA) NEG Urine Ketones NEG Urine Blood NEG Urine Nitrite NEG Ur Leukocyte Esterase NEG Ethyl Alcohol Coronavirus (PCR) NEGATIVE Influenza Type A (PCR) NEGATIVE Influenza Type B (PCR) NEGATIVE RSV RNA Qual (PCR) NEGATIVE Blood Type Antibody Screen Crossmatch 08/06/21 08/06/21 08/06/21 21:55 21:55 21:55 WBC 9.9 RBC 0.94 L Hgb 3.4 L* Hct 10.4 L* MCV 110.6 H MCH 36.2 H MCHC 32.7 RDW 15.3 Plt Count 184 MPV 9.6 Immature Gran % (Auto) 0.7 H Neut % (Auto) 82.6 H Lymph % (Auto) 11.0 L [place] % (Auto) 5.6 Eos % (Auto) 0.0 Baso % (Auto) 0.1 Lymph # (Auto) 1.1 L [place] # (Auto) 0.6 Eos # (Auto) 0.0 Baso # (Auto) 0.0 Abs Immat Gran (auto) 0.07 H Absolute Neuts (auto) 8.2 Absolute Nucleated RBC 0.020 H Nucleated RBC % (auto) 0.2 Smear Path Review SEE NOTE PT INR Sodium 128 L Potassium 4.4 Chloride 100 Carbon Dioxide 21 L Anion Gap 11 L BUN 41 H Creatinine 0.60 Estim Creat Clear Calc 87.3 Estimated GFR > 60 POC Glucose Random Glucose 118 H Fasting Glucose Lactic Acid Calcium 9.2 Phosphorus 3.0 Magnesium 1.5 L Total Bilirubin 0.3 Direct Bilirubin < 0.2 AST 20 ALT 14 Alkaline Phosphatase 45 Total Protein 4.8 L Albumin 3.1 L Vitamin B12 Folate Urine Color Urine Appearance Urine pH Ur Specific [place] Urine Protein Urine Glucose (UA) Urine Ketones Urine Blood Urine Nitrite Ur Leukocyte Esterase Ethyl Alcohol < 10 Coronavirus (PCR) Influenza Type A (PCR) Influenza Type B (PCR) RSV RNA Qual (PCR) Blood Type Antibody Screen Crossmatch 08/06/21 08/06/21 08/06/21 21:55 22:20 22:30 WBC RBC Hgb Hct MCV MCH MCHC RDW Plt Count MPV Immature Gran % (Auto) Neut % (Auto) Lymph % (Auto) [place] % (Auto) Eos % (Auto) Baso % (Auto) Lymph # (Auto) [place] # (Auto) Eos # (Auto) Baso # (Auto) Abs Immat Gran (auto) Absolute Neuts (auto) Absolute Nucleated RBC Nucleated RBC % (auto) Smear Path Review PT INR Sodium Potassium Chloride Carbon Dioxide Anion Gap BUN Creatinine Estim Creat Clear Calc Estimated GFR POC Glucose Random Glucose Fasting Glucose Lactic Acid 1.8 Calcium Phosphorus Magnesium Total Bilirubin Direct Bilirubin AST ALT Alkaline Phosphatase Total Protein Albumin Vitamin B12 611 Folate 7.6 Urine Color Urine Appearance Urine pH Ur Specific [place] Urine Protein Urine Glucose (UA) Urine Ketones Urine Blood Urine Nitrite Ur Leukocyte Esterase Ethyl Alcohol Coronavirus (PCR) Influenza Type A (PCR) Influenza Type B (PCR) RSV RNA Qual (PCR) Blood Type O Negative Antibody Screen NEGATIVE Crossmatch See Detail 08/06/21 08/07/21 08/07/21 23:14 01:44 02:10 WBC RBC Hgb 7.2 L D Hct 21.6 L D MCV MCH MCHC RDW Plt Count MPV Immature Gran % (Auto) Neut % (Auto) Lymph % (Auto) [place] % (Auto) Eos % (Auto) Baso % (Auto) Lymph # (Auto) [place] # (Auto) Eos # (Auto) Baso # (Auto) Abs Immat Gran (auto) Absolute Neuts (auto) Absolute Nucleated RBC Nucleated RBC % (auto) Smear Path Review PT 13.2 H INR 1.2 H Sodium 129 L Potassium 4.3 Chloride 102 Carbon Dioxide 19 L Anion Gap 12 BUN 36 H Creatinine 0.63 Estim Creat Clear Calc 83.1 Estimated GFR > 60 POC Glucose Random Glucose Fasting Glucose 152 H Lactic Acid Calcium 8.5 D Phosphorus Magnesium Total Bilirubin Direct Bilirubin AST ALT Alkaline Phosphatase Total Protein Albumin Vitamin B12 Folate Urine Color Urine Appearance Urine pH Ur Specific [place] Urine Protein Urine Glucose (UA) Urine Ketones Urine Blood Urine Nitrite Ur Leukocyte Esterase Ethyl Alcohol Coronavirus (PCR) Influenza Type A (PCR) Influenza Type B (PCR) RSV RNA Qual (PCR) Blood Type Antibody Screen Crossmatch 08/07/21 08/07/21 05:31 05:31 WBC 10.0 RBC 2.32 L D Hgb 7.9 L Hct 23.1 L MCV 99.6 H D MCH 34.1 H MCHC 34.2 RDW 14.6 Plt Count 116 L D MPV 8.9 L Immature Gran % (Auto) 1.0 H Neut % (Auto) 82.5 H Lymph % (Auto) 10.7 L [place] % (Auto) 5.6 Eos % (Auto) 0.0 Baso % (Auto) 0.2 Lymph # (Auto) 1.1 L [place] # (Auto) 0.6 Eos # (Auto) 0.0 Baso # (Auto) 0.0 Abs Immat Gran (auto) 0.10 H Absolute Neuts (auto) 8.2 Absolute Nucleated RBC 0.040 H Nucleated RBC % (auto) 0.4 H Smear Path Review PT INR Sodium 130 L Potassium 4.3 Chloride 103 Carbon Dioxide 20 L Anion Gap 11 L BUN 32 H Creatinine 0.62 Estim Creat Clear Calc 86.1 Estimated GFR > 60 POC Glucose Random Glucose 173 H Fasting Glucose Lactic Acid Calcium 8.3 L Phosphorus Magnesium Total Bilirubin 1.8 H Direct Bilirubin AST 22 ALT 14 Alkaline Phosphatase 41 Total Protein 4.7 L Albumin 3.3 L Vitamin B12 Folate Urine Color Urine Appearance Urine pH Ur Specific [place] Urine Protein Urine Glucose (UA) Urine Ketones Urine Blood Urine Nitrite Ur Leukocyte Esterase Ethyl Alcohol Coronavirus (PCR) Influenza Type A (PCR) Influenza Type B (PCR) RSV RNA Qual (PCR) Blood Type Antibody Screen Crossmatch Quality Stroke Does the patient have a stroke diagnosis?: No VTE Prior VTE?: No VTE Risk Level:: Medical - moderate - high VTE Device Contraindication: N/A - Device Ordered VTE Drug Contraindication: N/A - Med Ordered Progress Note: A&P Assessment and plan (1) Alcohol abuse: Status: Acute (2) Acute GI bleeding: Status: Acute (3) Anemia: Status: Acute (4) Hyponatremia: Status: Acute (5) Hypomagnesemia: Status: Acute Assessment and Plan: Patient is red cell repleted and is on a [facility] protocol to observe for signs of withdrawal currently on Librium and also on IV Protonix and octreotide and stable no longer requiring pressors due to volume replacement currently awaiting upper endoscopy and will now magnesium replete
[2021-08-07] MEDS: Magnesium Sulfate/D5W 1 GM/100 ML PIGGYBACK IV (13:17)
--- NOTE | 2021-08-07 14:06 | P.CONAN_ITS ---
[facility] Active Problems Active Problems: All Active Problems (Updated 08/07/21 @ 13:04 by Hardeep dockery MD) Hypomagnesemia (Acute) Hyponatremia (Acute) Anemia (Acute) Alcohol abuse (Acute) Acute GI bleeding (Acute) Past Medical History Medical History (Updated 08/07/21 @ 13:04 by Hardeep Rivers MD) EtOH dependence Hyperlipidemia Hypertension Family History Family history of problems with anesthesia: No Surgical History Surgical History (Updated 08/07/21 @ 01:48 by Mary Rendon RN) History of delivery History of Problems with Anesthesia: No Social History Social History Household Members: Spouse Housing: House Do you presently have visiting nurse or other home services: No Patient Tobacco Use Status: Former Tobacco user Use of substances other than those prescribed or required for medical reasons: No Currently Displaying Signs/Symptoms of Drug Intoxication Withdrawal: No Have you been hit, kicked, punched, or otherwise hurt by someone within the past year? If so, by whom?: No Do you feel safe in your current relationship?: Yes Is there a partner from a previous relationship who is making you feel unsafe now?: No Are you made to feel afraid or neglected: No Advance Directives: No Advance Directives Information Provided: Yes Advance Directives on File: No Do you have thoughts of harming others: None Do you have a plan to hurt others: No Plan Recently lost weight without trying: Unsure Nutrition Risks: On aspiration precautions Patient : No : No Poor oral hygiene: No service: No Current occupational status: retired [employer] Allergies Allergy/AdvReac Type Severity Reaction Status Date / Time No Known Allergies Allergy Verified 08/06/21 20:28 Active Medications: Current Medications Chlordiazepoxide HCl (Chlordiazepoxide Hcl 25 Mg Capsule) 25 mg PO TID [facility] Last Admin: 08/07/21 09:55 Dose: 25 mg Documented by: Pantoprazole Sodium 80 mg/ (Sodium Chloride) 100 mls @ 10 mls/hr IV .Q10H [facility] Last Admin: 08/07/21 09:35 Dose: 8 mg/hr, 10 mls/hr Documented by: Octreotide Acetate 500 mcg/ (Sodium Chloride) 501 mls @ 50.1 mls/hr IVCONT .Q10H [facility] Last Admin: 08/07/21 09:33 Dose: 50 mcg/hr, 50.1 mls/hr Documented by: Thiamine HCl 100 mg/ Sodium (Chloride) 101 mls @ 202 mls/hr IV DAILY [facility] Last Infusion: 08/07/21 10:23 Dose: Infused Documented by: Folic Acid 1 mg/ Sodium (Chloride) 50.2 mls @ 100.4 mls/hr IV DAILY [facility] Stop: 08/09/21 09:29 Last Infusion: 08/07/21 10:13 Dose: Infused Documented by: Phenylephrine HCl 20 mg/ (Sodium Chloride) 252 mls @ 0 mls/hr IVCONT .Q0M [facility]; Protocol Last Titration: 08/07/21 10:46 Dose: 0 mcg/kg/min, 0 mls/hr Documented by: Multivitamins/Vitamin C (Multivitamin Tablet) 1 tab PO DAILY [facility] Last Admin: 08/07/21 09:55 Dose: 1 tab Documented by: Home Medications Medication Instructions Recorded Confirmed Last Taken Type amlodipine 10 mg tablet 10 mg PO DAILY 08/06/21 08/06/21 Unknown History aspirin 500 mg tablet 500 mg PO BID 08/06/21 08/06/21 Unknown History cyanocobalamin (vitamin B-12) 500 500 mcg PO DAILY 08/06/21 08/06/21 Unknown History mcg tablet (Vitamin B-12) lisinopril 40 mg tablet 40 mg PO DAILY 08/06/21 08/06/21 Unknown History metoprolol tartrate 100 mg tablet 100 mg PO BID 08/06/21 08/06/21 Unknown History Exam Exam Date and Time: August 07, 2021 1406 Height,Weight and Vital Signs: Height 5 ft 2 in Weight 88.7 kg Last Vital Signs Temp 98.1 F 08/07/21 11:00 Pulse 92 08/07/21 13:00 Resp 20 08/07/21 13:00 BP 123/66 08/07/21 13:00 Pulse Ox 95 08/07/21 13:00 Pertinent Lab Results Pertinent Lab Results: Laboratory Tests 08/06/21 08/06/21 08/06/21 21:08 21:16 21:16 WBC RBC Hgb Hct MCV MCH MCHC RDW Plt Count MPV Immature Gran % (Auto) Neut % (Auto) Lymph % (Auto) Jay % (Auto) Eos % (Auto) Baso % (Auto) Lymph # (Auto) Jay # (Auto) Eos # (Auto) Baso # (Auto) Abs Immat Gran (auto) Absolute Neuts (auto) Absolute Nucleated RBC Nucleated RBC % (auto) Smear Path Review PT INR Sodium Potassium Chloride Carbon Dioxide Anion Gap BUN Creatinine Estim Creat Clear Calc Estimated GFR POC Glucose 99 Random Glucose Fasting Glucose Lactic Acid Calcium Phosphorus Magnesium Total Bilirubin Direct Bilirubin AST ALT Alkaline Phosphatase Total Protein Albumin Vitamin B12 Folate Urine Color YELLOW Urine Appearance CLEAR Urine pH 6.0 Ur Specific [place] 1.010 Urine Protein NEG Urine Glucose (UA) NEG Urine Ketones NEG Urine Blood NEG Urine Nitrite NEG Ur Leukocyte Esterase NEG Ethyl Alcohol Coronavirus (PCR) NEGATIVE Influenza Type A (PCR) NEGATIVE Influenza Type B (PCR) NEGATIVE RSV RNA Qual (PCR) NEGATIVE Blood Type Antibody Screen Crossmatch 08/06/21 08/06/21 08/06/21 21:55 21:55 21:55 WBC 9.9 RBC 0.94 L Hgb 3.4 L* Hct 10.4 L* MCV 110.6 H MCH 36.2 H MCHC 32.7 RDW 15.3 Plt Count 184 MPV 9.6 Immature Gran % (Auto) 0.7 H Neut % (Auto) 82.6 H Lymph % (Auto) 11.0 L Jay % (Auto) 5.6 Eos % (Auto) 0.0 Baso % (Auto) 0.1 Lymph # (Auto) 1.1 L Jay # (Auto) 0.6 Eos # (Auto) 0.0 Baso # (Auto) 0.0 Abs Immat Gran (auto) 0.07 H Absolute Neuts (auto) 8.2 Absolute Nucleated RBC 0.020 H Nucleated RBC % (auto) 0.2 Smear Path Review SEE NOTE PT INR Sodium 128 L Potassium 4.4 Chloride 100 Carbon Dioxide 21 L Anion Gap 11 L BUN 41 H Creatinine 0.60 Estim Creat Clear Calc 87.3 Estimated GFR > 60 POC Glucose Random Glucose 118 H Fasting Glucose Lactic Acid Calcium 9.2 Phosphorus 3.0 Magnesium 1.5 L Total Bilirubin 0.3 Direct Bilirubin < 0.2 AST 20 ALT 14 Alkaline Phosphatase 45 Total Protein 4.8 L Albumin 3.1 L Vitamin B12 Folate Urine Color Urine Appearance Urine pH Ur Specific [place] Urine Protein Urine Glucose (UA) Urine Ketones Urine Blood Urine Nitrite Ur Leukocyte Esterase Ethyl Alcohol < 10 Coronavirus (PCR) Influenza Type A (PCR) Influenza Type B (PCR) RSV RNA Qual (PCR) Blood Type Antibody Screen Crossmatch 08/06/21 08/06/21 08/06/21 21:55 22:20 22:30 WBC RBC Hgb Hct MCV MCH MCHC RDW Plt Count MPV Immature Gran % (Auto) Neut % (Auto) Lymph % (Auto) Jay % (Auto) Eos % (Auto) Baso % (Auto) Lymph # (Auto) Jay # (Auto) Eos # (Auto) Baso # (Auto) Abs Immat Gran (auto) Absolute Neuts (auto) Absolute Nucleated RBC Nucleated RBC % (auto) Smear Path Review PT INR Sodium Potassium Chloride Carbon Dioxide Anion Gap BUN Creatinine Estim Creat Clear Calc Estimated GFR POC Glucose Random Glucose Fasting Glucose Lactic Acid 1.8 Calcium Phosphorus Magnesium Total Bilirubin Direct Bilirubin AST ALT Alkaline Phosphatase Total Protein Albumin Vitamin B12 611 Folate 7.6 Urine Color Urine Appearance Urine pH Ur Specific [place] Urine Protein Urine Glucose (UA) Urine Ketones Urine Blood Urine Nitrite Ur Leukocyte Esterase Ethyl Alcohol Coronavirus (PCR) Influenza Type A (PCR) Influenza Type B (PCR) RSV RNA Qual (PCR) Blood Type O Negative Antibody Screen NEGATIVE Crossmatch See Detail 08/06/21 08/07/21 08/07/21 23:14 01:44 02:10 WBC RBC Hgb 7.2 L D Hct 21.6 L D MCV MCH MCHC RDW Plt Count MPV Immature Gran % (Auto) Neut % (Auto) Lymph % (Auto) Jay % (Auto) Eos % (Auto) Baso % (Auto) Lymph # (Auto) Jay # (Auto) Eos # (Auto) Baso # (Auto) Abs Immat Gran (auto) Absolute Neuts (auto) Absolute Nucleated RBC Nucleated RBC % (auto) Smear Path Review PT 13.2 H INR 1.2 H Sodium 129 L Potassium 4.3 Chloride 102 Carbon Dioxide 19 L Anion Gap 12 BUN 36 H Creatinine 0.63 Estim Creat Clear Calc 83.1 Estimated GFR > 60 POC Glucose Random Glucose Fasting Glucose 152 H Lactic Acid Calcium 8.5 D Phosphorus Magnesium Total Bilirubin Direct Bilirubin AST ALT Alkaline Phosphatase Total Protein Albumin Vitamin B12 Folate Urine Color Urine Appearance Urine pH Ur Specific [place] Urine Protein Urine Glucose (UA) Urine Ketones Urine Blood Urine Nitrite Ur Leukocyte Esterase Ethyl Alcohol Coronavirus (PCR) Influenza Type A (PCR) Influenza Type B (PCR) RSV RNA Qual (PCR) Blood Type Antibody Screen Crossmatch 08/07/21 08/07/21 05:31 05:31 WBC 10.0 RBC 2.32 L D Hgb 7.9 L Hct 23.1 L MCV 99.6 H D MCH 34.1 H MCHC 34.2 RDW 14.6 Plt Count 116 L D MPV 8.9 L Immature Gran % (Auto) 1.0 H Neut % (Auto) 82.5 H Lymph % (Auto) 10.7 L Jay % (Auto) 5.6 Eos % (Auto) 0.0 Baso % (Auto) 0.2 Lymph # (Auto) 1.1 L Jay # (Auto) 0.6 Eos # (Auto) 0.0 Baso # (Auto) 0.0 Abs Immat Gran (auto) 0.10 H Absolute Neuts (auto) 8.2 Absolute Nucleated RBC 0.040 H Nucleated RBC % (auto) 0.4 H Smear Path Review PT INR Sodium 130 L Potassium 4.3 Chloride 103 Carbon Dioxide 20 L Anion Gap 11 L BUN 32 H Creatinine 0.62 Estim Creat Clear Calc 86.1 Estimated GFR > 60 POC Glucose Random Glucose 173 H Fasting Glucose Lactic Acid Calcium 8.3 L Phosphorus Magnesium Total Bilirubin 1.8 H Direct Bilirubin AST 22 ALT 14 Alkaline Phosphatase 41 Total Protein 4.7 L Albumin 3.3 L Vitamin B12 Folate Urine Color Urine Appearance Urine pH Ur Specific [place] Urine Protein Urine Glucose (UA) Urine Ketones Urine Blood Urine Nitrite Ur Leukocyte Esterase Ethyl Alcohol Coronavirus (PCR) Influenza Type A (PCR) Influenza Type B (PCR) RSV RNA Qual (PCR) Blood Type Antibody Screen Crossmatch Airway Mallampati Class: II TM Dist: >3cm Neck ROM: Full Heart: rrr Lungs: cta Assessment and Plan Assessment Anesthesia Assessment: Anesthesia Plan Discussed and Chart Reviewed Final Anesthetic Review Family History of Problems with Anesthesia: No History of Problems with Anesthesia: No NPO: Yes ASA Class: III Final Preanesthetic Review: No Changes in Pt Med Stat and Consent Obtained/Reviewed Patient Risk: Intermediate Procedure Risk: Intermediate Anesthetic Plan Anesthetic Plan: MAC: Disposition: Standard PACU
--- NOTE | 2021-08-07 14:54 | P.BOP_ITS ---
Brief Operative Note Date of Service: 08/07/21 Pre-op diagnosis: GI Bleeding Post-op diagnosis: other (Hiatal hernia, gastrc ulcer, duodenal ulcers) Procedure: FLEXIBLE TRANSORAL UPPER GASTROINTESTINAL ENDOSCOPY WITH BIOPSIES AND CONTROL OF BLEEDING (CAUTERY, HEMOCLIP, EPINEPHRINE INJECTION) Consent: Indications for the procedure and potential complications of bleeding, perforation, reaction to medications and missed diagnosis were discussed with the patient and informed consent was obtained. Instrument: Olympus GIF H 190 mid size upper endoscope Monitoring: Vital signs and clinical assessment, continuous EKG monitoring, Pulse oximetry, Carbon Dioxide monitoring and blood pressure monitoring were done throughout the procedure. Procedure: The patient was placed in the left lateral decubitis position and pre-procedure medications were administered and a bite block was placed. The endoscope was inserted into the mouth and advanced under direct vision to the third part of duodenum. A careful inspection was made as the upper endoscope was withdrawn including a retroflexed examination of the proximal stomach; Findings and interventions are described below. Findings: Larynx: Normal Esophagus: GE junction at 34 cms, small hiatal hernia 34 to 36 cms. No esophagitis, Epps's or varices Stomach: Mild gastric erythema with a 5-6 mm clean based, non bleeding ulcer in the antrum.. Biopsies were obtained to check for H Pylori. Grade 2 flap valve on retroflexed examination of the cardia. Duodenum: A 1 cms clean based ulcer in the apex of the bulb. A 2nd 1.5 cms ulcer with a visible vessel with slow oozing. Ulcer base was treated with caute ry using the Gold probe. Small amount of oozing controlled with 2 cc of epinephrine and hemoclip placement. A 3rd clean based ulcer in the proximal descening duodenum. Intervention: Biopsies as noted above Impression and Post Procedure Diagnosis: Endoscopy Findings: ESOPHAGUS: small hiatal hernia STOMACH: a 5-6 mm clean based, non bleeding ulcer in the antrum. Biopsies obtained to check for H pylori. DUODENUM: Two clean base DU. A 3rd 1.5 cms ulcer with a visible vessel with slow oozing. Ulcer base was treated with cautery using the Gold probe. Small amount of oozing controlled with 2 cc of epinephrine and hemoclip placement. Multiple ulcers likely related to aspirin use versus H pylori Plan: IV PPI infusion x 48 hrs. Hold aspirin. OK to stop Octreotide since no varices were detected. Patient to FU in the GI Clinic with Jacob Mc M.D. Repeat EGD in 12 weeks to confirm ulcers have healed. Above findings were reviewed with the patient. Surgeon: Jacob Mc MD Anesthesia: MAC ([facility] CRNA) Was an Records Technician used for this Procedure?: Yes Records Technician: Dinora Scott Estimated blood loss (mL): 5 Pathology: other (A. Gastric antrum) Condition: stable Disposition: PACU
--- NOTE | 2021-08-07 14:55 | P.OP_ITS ---
Operative Note Operative Note Date of Service: 08/07/21 Narrative: Pre-op diagnosis:?GI Bleeding Post-op diagnosis:?other (Hiatal hernia, gastrc ulcer, duodenal ulcers) Procedure:? FLEXIBLE TRANSORAL UPPER GASTROINTESTINAL ENDOSCOPY WITH BIOPSIES AND CONTROL OF BLEEDING (CAUTERY, HEMOCLIP, EPINEPHRINE INJECTION) Consent:?Indications for the procedure and potential complications of bleeding, perforation, reaction to medications and missed diagnosis were discussed with the patient and informed consent was obtained. Instrument:?Olympus GIF H 190 mid size upper endoscope Monitoring: Vital signs and clinical assessment, continuous EKG monitoring, Pulse oximetry, Carbon Dioxide monitoring and blood pressure monitoring were done throughout the procedure. Procedure:?The patient was placed in the left lateral decubitis position and pre-procedure medications were administered and a bite block was placed. The endoscope was inserted into the mouth and advanced under direct vision to the third part of duodenum. A careful inspection was made as the upper endoscope was withdrawn including a retroflexed examination of the proximal stomach; Findings and interventions are described below. Findings: Larynx:??Normal Esophagus:?GE junction at 34 cms, small hiatal hernia 34 to 36 cms.? No esophagitis, Epps's or varices Stomach:?Mild gastric erythema with a 5-6 mm clean based, non bleeding ulcer in the antrum.. Biopsies were obtained to check for H Pylori. Grade 2 flap valve on retroflexed examination of the cardia. Duodenum:?A 1 cms clean based ulcer in the apex of the bulb.? A 2nd 1.5 cms ulcer with a visible vessel with slow oozing.? Ulcer base was treated with cautery using the Gold probe.? Small amount of oozing controlled with 2 cc of epinephrine and hemoclip placement. A 3rd clean based ulcer in the proximal descening duodenum. Intervention:?Biopsies as noted above Impression and Post Procedure Diagnosis: Endoscopy Findings: ESOPHAGUS: small hiatal hernia STOMACH: a 5-6 mm clean based, non bleeding ulcer in the antrum.? Biopsies obtained to check for H pylori. DUODENUM: Two clean base DU.? A 3rd 1.5 cms ulcer with a visible vessel with slow oozing.? Ulcer base was treated with cautery using the Gold probe.? Small amount of oozing controlled with 2 cc of epinephrine and hemoclip placement. Multiple ulcers likely related to aspirin use versus H pylori Plan: IV PPI infusion x 48 hrs. Hold aspirin. OK to stop Octreotide since no varices were detected. Patient to FU in the GI Clinic with Jacob Mc M.D. Repeat EGD in 12 weeks to confirm ulcers have healed. Above findings were reviewed with the patient. Surgeon:?Jacob Mc MD Anesthesia:?MAC ([place] [facility] CRNA) Was an Reservoir Engineering Advisor used for this Procedure?:?Yes Reservoir Engineering Advisor:?Dinora Scott Estimated blood loss (mL):?5 Pathology:?other (A.? Gastric antrum) Condition:?stable Disposition:?PACU
--- NOTE | 2021-08-07 15:49 | PC.NURSE ---
REPORT GIVEN TO AIRPORT ATTENDANT. PATIENTS CALLED AND UPDATED ON PATIENTS ROOM CHANGE. PATIENTS BELONGINGS BROUGHT TO NEW ROOM.
[2021-08-08] VITALS (7 sets, daily range): BP systolic 107–143; BP diastolic 57–69; PULSE 86–113; RESP 17–19; TEMP 36.6–37.7; O2SAT 94–97
[2021-08-08 06:21] LABS: MANUAL DIFF FLAG NO
[2021-08-08 06:44] LABS: Alanine Aminotransferase 21 U/L (0-31); Alkaline Phosphatase 45 U/L (39-117); Anion Gap 9 (12-20); Aspartate Amino Transferase 26 U/L (5-31); Bilirubin Total 0.9 mg/dL (0.0-1.0); Blood Urea Nitrogen 11 mg/dL (9-16); Calcium 8.4 mg/dL (8.4-10.2); Carbon Dioxide 23 mmol/L (22-29); Chloride 105 mmol/L (96-108); Estimated Glomerular Filt Rate > 60; Glucose Random 123 mg/dL (60-115); Sodium 133 mmol/L (135-145); Total Protein 4.5 g/dL (6.5-8.0)
[2021-08-08 06:56] LABS: Basophils Percent Auto 0.6 % (0-2); Eosinophils Absolute Auto 0.1 X10*3/uL (0.0-0.4); Eosinophils Percent Auto 2.1 % (0-4); Hemoglobin 7.8 g/dl (12.0-16.0); Imm Gran Abs Auto 0.05 X10*3/uL (0.00-0.03); Imm Gran Pct Auto 0.7 % (0.0-0.4); Lymphocytes Percent Auto 14.4 % (20-40); Mean Corpuscular HGB Conc 33.9 g/dl (31.0-35.0); Mean Corpuscular Volume 103.1 fL (80-98); Mean Platelet Volume 8.7 fL (9.4-12.3); Monocytes Absolute Auto 0.5 X10*3/uL (0.1-1.2); Monocytes Percent Auto 7.7 % (2-11); NRBC Pct Auto 0.4 /100WBC (0.0-0.2); Neutrophils Percent Auto 74.5 % (45-73); Platelet Count 140 X10*3/uL (160-400); Red Blood Count 2.23 X10*6/uL (4.20-5.50); Red Cell Distribution Width 16.2 % (11.0-16.0); White Blood Count 6.8 X10*3/uL (4.8-10.8)
[2021-08-08] MEDS: Folic Acid 1 MG in 0.9 % Sodium Chloride 50 ML 100.4 MG IV (07:45)
[2021-08-08] MEDS: Multivitamin TABLET 1 TAB PO (07:45)
[2021-08-08] MEDS: chlordiazePOXIDE HCl 25 MG CAPSULE PO ×3 (07:45→20:50)
--- NOTE | 2021-08-08 08:09 | HO.POSTANES ---
Post Anesthesia Evaluation Post Anesthesia Evaluation Vital Signs: Vital Signs Temp Pulse Resp BP Pulse Ox 08/08/21 07:57 98.3 F 100 18 143/68 H 95 08/08/21 04:00 98.4 F 86 17 107/57 L 96 08/07/21 23:54 98.8 F 98 17 129/67 97 Anesthesia: Monitored Mental Status: Awake Pain Control: Satisfactory Nausea/Vomiting: None Hydration: Adequate Anesthesia-Related Issues: No Anes. Related Issues
[2021-08-08 08:16] LABS: Bilirubin Direct 0.5 mg/dL (0.0-0.5); Magnesium 1.7 mg/dL (1.6-2.6)
[2021-08-08] MEDS: Thiamine HCL 100 MG in 0.9 % Sodium Chloride 100 ML 202 MG IV (10:09)
[2021-08-08] MEDS: Pantoprazole Sodium 80 MG in 0.9 % Sodium Chloride 80 ML 10 MG IV ×2 (10:09→20:51)
[2021-08-08] MEDS: Magnesium Oxide 400 MG TABLET 800 MG PO (12:22)
--- NOTE | 2021-08-08 12:35 | P.PNIM_ITS ---
Subjective Subjective Date of Service: 08/08/21 Interval History: acute blood loss anemia sec to Gi ulcer Review of Systems Patient denies any nausea vomiting or abdominal pain or fever chills or cough . Physical Exam Vital Signs: Vital Signs: Last Vital Signs Temp 97.8 F 08/08/21 11:56 Pulse 98 08/08/21 11:56 Resp 18 08/08/21 11:56 BP 127/61 08/08/21 11:56 Pulse Ox 96 08/08/21 11:56 Body Mass Index 35.7 Physical exam: Appearance: ? not in distress.? ? Sclera nonicteric.? ENT: Pharynx normal.? Moist mucous membranes. cvs: rrr, [id number] , no murmur res: clear to auscultation ,no rhonchii or wheezing abd: no rebound or guarding ,nt, bs present. ext pulses present , no cyanosis ,Gait well balanced well coordinated. neuro: axo3 , nonfocal. Objective Data Active Medications Chlordiazepoxide HCl (Chlordiazepoxide Hcl 25 Mg Capsule) 25 mg PO TID [facility] Last Admin: 08/08/21 07:45 Dose: 25 mg Documented by: YUKO Folic Acid (Folic Acid 1 Mg Tablet) 1 mg PO DAILY [facility] Last Admin: 08/08/21 12:21 Dose: Not Given Documented by: YUKO Non-Admin Reason: iv dose this am Pantoprazole Sodium 80 mg/ (Sodium Chloride) 100 mls @ 10 mls/hr IV .Q10H [facility] Last Admin: 08/08/21 10:09 Dose: 8 mg/hr, 10 mls/hr Documented by: YUKO Magnesium Oxide (Magnesium Oxide 400 Mg Tablet) 800 mg PO DAILY [facility] [place] Last Admin: 08/08/21 12:22 Dose: 800 mg Documented by: YUKO Multivitamins/Vitamin C (Multivitamin Tablet) 1 tab PO DAILY [facility] [place] Last Admin: 08/08/21 07:45 Dose: 1 tab Documented by: YUKO Thiamine HCl (Thiamine Hcl 100 Mg Tablet) 100 mg PO DAILY [facility] Labs CBC & Chem 7: 08/08/21 05:49 08/08/21 05:49 Labs: Laboratory Results - last 24 hr 08/08/21 08/08/21 05:49 05:49 MCV 103.1 H MCH 35.0 H MCHC 33.9 RDW 16.2 H Plt Count 140 L MPV 8.7 L Immature Gran % (Auto) 0.7 H Neut % (Auto) 74.5 H Lymph % (Auto) 14.4 L [place] % (Auto) 7.7 Eos % (Auto) 2.1 Baso % (Auto) 0.6 Lymph # (Auto) 1.0 L [place] # (Auto) 0.5 Eos # (Auto) 0.1 Baso # (Auto) 0.0 Abs Immat Gran (auto) 0.05 H Absolute Neuts (auto) 5.0 Absolute Nucleated RBC 0.030 H Nucleated RBC % (auto) 0.4 H Anion Gap 9 L Estim Creat Clear Calc 97.0 Estimated GFR > 60 Random Glucose 123 H Calcium 8.4 Magnesium 1.7 Total Bilirubin 0.9 Direct Bilirubin 0.5 AST 26 ALT 21 Alkaline Phosphatase 45 Total Protein 4.5 L Albumin 3.0 L Microbiology Microbiology Results: Microbiology 08/06/21 21:54 Blood Culture - Preliminary Blood - Venous No growth after 24 hours. 08/06/21 21:36 Blood Culture - Preliminary Blood - Venous No growth after 24 hours. Assessment and Plan (1) Anemia: Status: Acute (2) Hypomagnesemia: Status: Acute (3) Alcohol abuse: Status: Acute Assessment and Plan: 1. GI bleeding probably secondary to renal ulcer: Hypotension-seems to be resolved after 3 PRBC and blood pressure seems to be improved. no new gross bleed today h/h stable range 7.8-7.9/23 since yesterday continue iv ppi for 48 hours , moniter h/h Avoid medications-aspirin, NSAID and blood thinners-which can cause bleeding. 2. Metabolic encephalopathy: Multifactorial-seems to be resolved with hydration, hyponatremia improving. 3.alcohol use: Advised to abstain alcohol. continue labrium care team eval 4/ htn : Blood pressure acceptable range, hold amlodipine and lisinopril. dvt prophylax: scd due to bleed . Quality Stroke Does the patient have a stroke diagnosis?: No VTE Prior VTE?: No VTE Risk Level:: Medical - moderate - high VTE Device Contraindication: N/A - Device Ordered VTE Drug Contraindication: N/A - Med Ordered
[2021-08-08 17:00] LABS: Glucose, Whole Blood 119 mg/dL (60-115)
[2021-08-08 21:01] LABS: Glucose, Whole Blood 107 mg/dL (60-115)
[2021-08-09] VITALS (7 sets, daily range): BP systolic 110–138; BP diastolic 66–91; PULSE 99–117; RESP 17–18; TEMP 36.2–37; O2SAT 95–98
[2021-08-09] MEDS: Pantoprazole Sodium 80 MG in 0.9 % Sodium Chloride 80 ML 10 MG IV ×3 (05:25→23:46)
[2021-08-09 05:49] LABS: Hematocrit 24.2 % (37-47); Hemoglobin 8.3 g/dl (12.0-16.0)
[2021-08-09] MEDS: Thiamine HCL 100 MG TABLET PO (08:50)
[2021-08-09] MEDS: Multivitamin TABLET 1 TAB PO (08:50)
[2021-08-09] MEDS: Magnesium Oxide 400 MG TABLET 800 MG PO (08:50)
[2021-08-09] MEDS: chlordiazePOXIDE HCl 25 MG CAPSULE PO ×3 (08:50→20:56)
[2021-08-09] MEDS: Folic Acid 1 MG TABLET PO (08:50)
--- NOTE | 2021-08-09 10:42 | MHC.RECOVRN ---
71 year old female presented to [facility] on 08/06, BIB EMS. Per EMS, pt from home with . Per , pt has been ill since 299 with +N/V/D. Per pt is non ambulatory but able to stand/pivot assist however pt has become increasingly weak since 299 and was no longer able to stand for transfer in the bathroom prompting to call EMS. Per EMS, pt extremely confused, unknown if baseline for pt. EMS states was a poor historian.Pt awake and alert but confused, denies N/V/D, pt unable to provide EMS with a reason she came to the hospital. Pt noted to be moving all extremities per psychology teacher. Upon evaluation, pt admitted to ICU for management of hypovolemic shock in the setting of acute on chronic upper GI bleed, metabolic encephalopathy, alcohol withdrawal, among other dx.? T/w met with pt in 361 after consult placed to CARE Team for alcohol use. Pt sitting in bed, finished breakfast. Pt hesitant?to speak to t/w regarding alcohol use, states I have it under control. I can stop if I want to. Alcohol isn't a problem. ? Pt reports first alcohol use at age 12, given to pt by father. Pt reports alcohol use since then with a period of recovery x 6 months in her 30s. Currently, patient is drinking approx?1/2 gallon of wine daily. Pt denies ever experiencing withdrawal symptoms. Denies tx for AUD. Denies alcohol use has interfered with her life.? Pt lives at home with her of 34 years. Pt states He does everything for me. He does my grocery shopping, he cleans, they don't make men like that anymore. Pt reports discarded alcohol at home and will not be buying more for pt. Pt declines recovery supports at this time but accepts resources. Pt encouraged to reach out to t/w if questions or concerns arise.?
--- NOTE | 2021-08-09 11:16 | MHC.CM.PN ---
Per ROUNDS discussion, Patient is not yet medically cleared for dc (GIB/will complete PPI Drip tomorrow). Home is the goal for dc and CM will follow for possible need to adjust the dc plan.
--- NOTE | 2021-08-09 16:00 | HO.PM.IMPN ---
Subjective Subjective Date of Service: 08/09/21 Interval History: anemia Review of Systems Denies any new acute bleeding episode. Denies any nausea or vomiting or fever or chills or cough or phlegm. Physical Exam Vital Signs: Vital Signs: Last Vital Signs Temp 97.2 F 08/09/21 15:29 Pulse 103 H 08/09/21 15:29 Resp 18 08/09/21 15:29 BP 118/68 08/09/21 15:29 Pulse Ox 97 08/09/21 15:29 Body Mass Index 35.7 Appearance: ? not in distress.? ? Sclera nonicteric.? ENT: Pharynx normal.? Moist mucous membranes. cvs: rrr, [id number] , no murmur res: clear to auscultation ,no rhonchii or wheezing abd: no rebound or guarding ,nt, bs present. ext pulses present , no cyanosis ,Gait well balanced well coordinated. neuro: axo3 , nonfocal Objective Data Active Medications Chlordiazepoxide HCl (Chlordiazepoxide Hcl 25 Mg Capsule) 25 mg PO TID [facility] Last Admin: 08/09/21 13:47 Dose: 25 mg Documented by: BRYON Folic Acid (Folic Acid 1 Mg Tablet) 1 mg PO DAILY [facility] Last Admin: 08/09/21 08:50 Dose: 1 mg Documented by: BRYON Pantoprazole Sodium 80 mg/ (Sodium Chloride) 100 mls @ 10 mls/hr IV .Q10H [facility] Last Admin: 08/09/21 13:48 Dose: 8 mg/hr, 10 mls/hr Documented by: BRYON Magnesium Oxide (Magnesium Oxide 400 Mg Tablet) 800 mg PO DAILY [facility] Last Admin: 08/09/21 08:50 Dose: 800 mg Documented by: BRYON Multivitamins/Vitamin C (Multivitamin Tablet) 1 tab PO DAILY [facility] Last Admin: 08/09/21 08:50 Dose: 1 tab Documented by: BRYON Thiamine HCl (Thiamine Hcl 100 Mg Tablet) 100 mg PO DAILY [facility] Last Admin: 08/09/21 08:50 Dose: 100 mg Documented by: BRYON Labs CBC & Chem 7: 08/09/21 05:24 08/08/21 05:49 Labs: Laboratory Results - last 24 hr 08/06/21 08/08/21 08/08/21 22:20 16:50 20:54 POC Glucose 119 H 107 Blood Type O Negative Antibody Screen NEGATIVE Crossmatch See Detail Microbiology Microbiology Results: Microbiology 08/06/21 21:54 Blood Culture - Preliminary Blood - Venous No growth after 48 hours. 08/06/21 21:36 Blood Culture - Preliminary Blood - Venous No growth after 48 hours. Assessment and Plan (1) Anemia: Status: Acute Assessment and Plan: 1. GI bleeding probably secondary to renal ulcer: Hypotension-seems to be resolved after 3 PRBC and blood pressure seems to be improved. no new gross bleed today h/h stable range 8.3/24 since yesterday continue iv ppi for 48 hours , moniter h/h Avoid medications-aspirin, NSAID and blood thinners-which can cause bleeding. 2. Metabolic encephalopathy:? Multifactorial-seems to be resolved with hydration, hyponatremia improving. 3.alcohol use:? Advised to abstain alcohol. continue labrium care team eval 4/ htn :? Blood pressure acceptable range, hold amlodipine and lisinopril. dvt prophylax: scd due to bleed . Quality Stroke Does the patient have a stroke diagnosis?: No VTE Prior VTE?: No VTE Risk Level:: Medical - moderate - high VTE Device Contraindication: N/A - Device Ordered VTE Drug Contraindication: N/A - Med Ordered
[2021-08-10] VITALS (7 sets, daily range): BP systolic 112–151; BP diastolic 55–77; PULSE 99–112; RESP 16–20; TEMP 36.6–37.3; O2SAT 95–99
--- NOTE | 2021-08-10 01:21 | PC.NURSE ---
Midnight HR 118. Checked manually, 112. Heart rate has been running in the 100's. Dr Nelson notified. EKG ordered and obtained. ST 108. Pt asymptomatic. Sent to . No new orders. Will continue to monitor.
[2021-08-10] MEDS: Magnesium Oxide 400 MG TABLET 800 MG PO (08:02)
[2021-08-10] MEDS: Thiamine HCL 100 MG TABLET PO (08:03)
[2021-08-10] MEDS: Folic Acid 1 MG TABLET PO (08:03)
[2021-08-10] MEDS: chlordiazePOXIDE HCl 25 MG CAPSULE PO ×3 (08:03→20:11)
[2021-08-10] MEDS: Multivitamin TABLET 1 TAB PO (08:03)
[2021-08-10] MEDS: amLODIPine Besylate 5 MG TABLET PO (08:03)
--- NOTE | 2021-08-10 11:08 | P.DS_ITS ---
DS: Providers Provider Date of Service: 08/11/21 Date of admission: 08/06/21 22:50 Primary care physician: Adriane Garcia MD Consults: 08/07/21 02:07 Consult to Gastroenterology Routine Consulting Provider: Jus Kinney Reason for consultation: UGIB/ on asa, eoth Has provider been notified: No 08/08/21 12:55 Consult to Care Team Routine Comment: Reason for consultation: alcohol abuse DS: Diagnosis Discharge Diagnosis (1) Anemia: Status: Acute DS: Summary Status at Discharge Cognitive/behavioral status at discharge: 71-year-old female chronic high volume alcoholic approximately 1.5 gal per day of wine never had withdrawal issues but she is now at least 36 hours since last drink with a negative alcohol level and currently oriented and not displaying any signs of physical withdrawal but presented with melanotic stool and hypotension with hemoglobin of 3.4 . hospital course: Patient came with the GI bleed and hypovolemia: Initially admitted to ICU for: For hypotension and acute blood loss anemia-patient subsequently was given resuscitation and PRBC- During this admission patient was seen by GI and EGD was done found to have oozing duodenal ulcer-which was controlled by epinephrine and hemoclip placement-H&H seems to be improving in 8 range now, no further episode of any bleeding, patient also received octreotide drip as well as Protonix drip- completed 48 hours of Protonix drip. Plan to switch on p.o. Protonix upon discharge. Patient also had small gastric ulcer in antrum area. Avoid NSAIDs or aspirin or blood thinners until cleared by GI out patiently. biopsies were done during EGD are still pending, patient is to follow up with GI out patiently for further management including biopsy results as well as repeat EGD in 12 weeks out patiently. Please check CBC in rehab in 1 week. Alcohol abuse bolivar discussed with patient in detail-she understands and trying to stop it. continue thiamine folic acid. Also patient is on Librium taper for alcohol use, has no sign of alcohol withdrawal. Above management discussed with the patient in detail length she understand and in agreement with the above plan, time spent 50 minutes and 50% time spent on counseling. Significant findings: As above. Procedures performed: None. Treatment and response: As above. Complications: None. Time Spent with Patient Time attestation: Total time spent providing and/or coordinating discharge services: Discharge coordination time: Greater than 30 minutes Quality: Stroke Does the patient have a stroke diagnosis?: No Physical Exam Vital Signs: Vital Signs: Last Vital Signs Temp 98.1 F 08/10/21 07:37 Pulse 101 H 08/10/21 10:14 Resp 20 08/10/21 07:37 BP 113/58 L 08/10/21 10:14 Pulse Ox 95 08/10/21 10:14 Body Mass Index 35.7 Appearance: ? not in distress.? ? Sclera nonicteric.? ENT: Pharynx normal.? Moist mucous membranes. cvs: rrr, [id number] , no murmur res: clear to auscultation ,no rhonchii or wheezing abd: no rebound or guarding ,nt, bs present. ext pulses present , no cyanosis ,Gait well balanced well coordinated. neuro: axo3 , nonfocal. DS: Data Data Completed and Pending Pending studies at discharge: Pending at discharge 08/07/21 15:30 Surgical [PTH] Routine Labs on day of discharge: Laboratory Results - last 24 hr 08/06/21 22:20 Blood Type O Negative Antibody Screen NEGATIVE Crossmatch See Detail Preliminary micro results at discharge 08/06/21 21:54 Blood Culture - Preliminary Blood - Venous No growth after 48 hours. 08/06/21 21:36 Blood Culture - Preliminary Blood - Venous No growth after 48 hours. Discharge Plan Discharge Patient Disposition: er [facility] Discharge Diagnosis: GI bleed, alcohol abuse [facility]errals: [facility] [Outside] - 1 Week Jacob Mc MD [Physician] - 1 Week (follow up in 2weeks) Adriane Garcia MD [Primary Care Provider] - 1 Week Discharge Medications: New folic acid 1 mg Tablet 1 mg PO DAILY Qty: 30 RF: 0 thiamine mononitrate (vit B1) 100 mg Tablet 100 mg PO DAILY Qty: 30 RF: 0 magnesium oxide 400 mg (241.3 mg magnesium) Tablet 800 mg PO DAILY Qty: 7 RF: 0 chlordiazepoxide HCl 25 mg Capsule 25 mg PO TID Qty: 14 RF: 0 Continued metoprolol tartrate 100 mg tablet 100 mg PO BID RF: 0 cyanocobalamin (vitamin B-12) [Vitamin B-12] 500 mcg tablet 500 mcg PO DAILY RF: 0 lisinopril 40 mg tablet 40 mg PO DAILY RF: 0 Changed amlodipine 10 mg tablet 5 mg PO DAILY Qty: 0 RF: 0 Discontinued Qasim Aspirin 500 mg Tablet 500 mg PO BID RF: 0 Discharge Orders: Discharge Order (Routine); Ordered 08/11/21 Ordered By: Vicky Hill Diet: advance to usual diet and low fat, low cholesterol Activity on Discharge: As tolerated Stand Alone Forms: Patient Portal Discharge page Care Plan Goals: Patient came with the GI bleed and hypovolemia: Initially admitted to ICU for: For hypotension and acute blood loss anemia-patient subsequently was given resuscitation and PRBC- During this admission patient was seen by GI and EGD was done found to have oozing duodenal ulcer-which was controlled by epinephrine and hemoclip placement-H&H seems to be improving in 8 range now, no further episode of any bleeding, patient also received octreotide drip as well as Protonix drip- completed 48 hours of Protonix drip. Plan to switch on p.o. Protonix upon discharge. Patient also had small gastric ulcer in antrum area. Avoid NSAIDs or aspirin or blood thinners until cleared by GI out patiently. biopsies were done during EGD are still pending, patient is to follow up with GI out patiently for further management including biopsy results as well as repeat EGD in 12 weeks out patiently. Please check CBC in rehab in 1 week. Alcohol abuse bolivar discussed with patient in detail-she understands and trying to stop it. continue thiamine folic acid Health Concerns: As above. Plan of Treatment: As above. Assessment: As above.
--- NOTE | 2021-08-10 12:16 | MHC.CM.PN ---
PT is recommending STR. CM met with Patient and her at bedside and per her approval, several SNF referrals were made. Of the 3 SNFs that may have a bed for an unvaccinated Patient ([facility], [facility]), [facility] first choice. MD jaramillo and JESSI will follow.
--- NOTE | 2021-08-10 14:30 | HO.PM.IMPN ---
Subjective Subjective Date of Service: 08/10/21 Interval History: GI bleed Review of Systems Denies any new blood in the stool or any chest pain or shortness of breath or fever or chills. Physical Exam Vital Signs: Vital Signs: Last Vital Signs Temp 98.5 F 08/10/21 11:26 Pulse 99 08/10/21 11:26 Resp 18 08/10/21 11:26 BP 118/60 08/10/21 11:26 Pulse Ox 96 08/10/21 11:26 Body Mass Index 35.7 Physical exam: Appearance: Alert.? Oriented X3.? not in distress.? Eyes: Pupils equal, round and reactive to light.? Sclera nonicteric.? ENT: Pharynx normal.? Moist mucous membranes. cvs: rrr, [id number] , no murmur res: clear to auscultation ,no rhonchii or wheezing abd: no rebound or guarding ,nt, bs present. ext pulses present , no cyanosis ,Gait well balanced well coordinated. neuro: axo3 , nonfocal. Objective Data Active Medications Amlodipine Besylate (Amlodipine Besylate 5 Mg Tablet) 5 mg PO DAILY [facility]; Protocol Last Admin: 08/10/21 08:03 Dose: 5 mg Documented by: ANGELLA Chlordiazepoxide HCl (Chlordiazepoxide Hcl 25 Mg Capsule) 25 mg PO TID [facility] Last Admin: 08/10/21 08:03 Dose: 25 mg Documented by: ANGELLA Folic Acid (Folic Acid 1 Mg Tablet) 1 mg PO DAILY [facility] Last Admin: 08/10/21 08:03 Dose: 1 mg Documented by: ANGELLA Magnesium Oxide (Magnesium Oxide 400 Mg Tablet) 800 mg PO DAILY [facility] Last Admin: 08/10/21 08:02 Dose: 800 mg Documented by: ANGELLA Multivitamins/Vitamin C (Multivitamin Tablet) 1 tab PO DAILY [facility] Last Admin: 08/10/21 08:03 Dose: 1 tab Documented by: ANGELLA Thiamine HCl (Thiamine Hcl 100 Mg Tablet) 100 mg PO DAILY [facility] Last Admin: 08/10/21 08:03 Dose: 100 mg Documented by: ANGELLA Labs CBC & Chem 7: 08/09/21 05:24 08/08/21 05:49 Labs: Laboratory Results - last 24 hr 08/06/21 22:20 Blood Type O Negative Antibody Screen NEGATIVE Crossmatch See Detail Assessment and Plan (1) Hypomagnesemia: Status: Acute (2) Anemia: Status: Acute (3) Acute GI bleeding: Status: Acute Assessment and Plan: 1. GI bleeding probably secondary to renal ulcer: Hypotension-seems to be resolved after 3 PRBC and blood pressure seems to be improved. no new gross bleed today h/h stable range 8.3/24 since yesterday continue iv ppi for 48 hours , moniter h/h Avoid medications-aspirin, NSAID and blood thinners-which can cause bleeding. 2. Metabolic encephalopathy:? Multifactorial-seems to be resolved with hydration, hyponatremia improving. 3.alcohol use:? Advised to abstain alcohol. continue labrium care team eval 4/ htn :? Blood pressure acceptable range, hold amlodipine and lisinopril. possible discharge to rehab in morning dvt prophylax: scd due to bleed . Quality Stroke Does the patient have a stroke diagnosis?: No VTE Prior VTE?: No VTE Risk Level:: Medical - moderate - high VTE Device Contraindication: N/A - Device Ordered VTE Drug Contraindication: N/A - Med Ordered
[2021-08-11] VITALS: BP 123/72; PULSE 105; RESP 16; TEMP 36.9; O2SAT 96
[2021-08-11 04:00] VITALS: BP 118/62; PULSE 99; RESP 16; TEMP 36.7; O2SAT 96
[2021-08-11 08:00] VITALS: BP 121/70; PULSE 101; RESP 18; TEMP 36.5; O2SAT 97
[2021-08-11] MEDS: Thiamine HCL 100 MG TABLET PO (09:31)
[2021-08-11] MEDS: Magnesium Oxide 400 MG TABLET 800 MG PO (09:31)
[2021-08-11] MEDS: Multivitamin TABLET 1 TAB PO (09:31)
[2021-08-11] MEDS: chlordiazePOXIDE HCl 25 MG CAPSULE PO (09:31)
[2021-08-11] MEDS: Folic Acid 1 MG TABLET PO (09:31)
[2021-08-11] MEDS: amLODIPine Besylate 5 MG TABLET PO (09:31)
[2021-08-11 10:46] LABS: COVID-19 Test Negative (Negative); IDNOW Serial# 08D9AD1C
--- NOTE | 2021-08-11 10:59 | MHC.INPTTRAN ---
alert and oriented. Very weak. OOB with 2 assist. Humberto diet. Nystatin powder to groin. H@H stable No evidence of recent GI bleed. No s/s of ETOH withdrawal. VSS Cont with marta LE edema thanks.
--- NOTE | 2021-08-11 11:06 | MHC.CM.PN ---
Patient has been medically cleared for dc to SNF/STR today. Patient will dc to [facility] today at 1PM, via [facility]. Patient and her are aware of and in agreement with the dc plan. IMM addressed with Patient and original has been given to her and a copy has been placed on the chart.
[2021-08-11 11:21] VITALS: BP 127/77; PULSE 97; RESP 18; TEMP 36.4; O2SAT 98
--- NOTE | 2021-08-12 | ECG_ITS ---
Test Reason : tachycardia Blood Pressure : / mmHG Vent. Rate : 108 BPM Atrial Rate : 108 BPM P-R Int : 180 ms QRS Dur : 098 ms QT Int : 324 ms P-R-T Axes : 021 001 -01 degrees QTc Int : 434 ms Sinus tachycardia Nonspecific ST abnormality Intra-ventricular conduction delay Abnormal ECG ST less depressed in Lateral leads Referred By: Aaron Nelson Electronically Signed By:REJI ANDRES MD
== END 2021-08-11 13:30 | disposition skilled nursing facility (03) | DRG 377 ==
LOC: HO.ED 20:30 → HO.EDOVER 23:20 → HO.ICU 23:21 → HO.S3 08-07 15:25
PROVIDERS: Internal Medicine Gastroenterology; Physician Assistant Medical; Admitting Provider Internal Medicine Pulmonary Disease; Emergency Provider Emergency Medicine Emergency Medical Services; PCP Internal Medicine; Visit Provider Internal Medicine
PROC: 0DJ08ZZ Inspection of Upper Intestinal Tract, Via Natural or Artificial Opening Endoscopic (ICD-10-PCS; CPT 43235; principal; 2021-08-07 14:20)
DX: K25.4 Chronic or unspecified gastric ulcer with hemorrhage (principal); R57.1 Hypovolemic shock; G93.41 Metabolic encephalopathy; D62 Acute posthemorrhagic anemia; N17.9 Acute kidney failure, unspecified; K26.4 Chronic or unspecified duodenal ulcer with hemorrhage; E78.5 Hyperlipidemia, unspecified; E83.42 Hypomagnesemia; F10.20 Alcohol dependence, uncomplicated; I95.9 Hypotension, unspecified; K44.9 Diaphragmatic hernia without obstruction or gangrene; E66.9 Obesity, unspecified; Z68.35 Body mass index [BMI] 35.0-35.9, adult; F10.10 Alcohol abuse, uncomplicated; Z20.822 Contact with and (suspected) exposure to COVID-19; Z88.0 Allergy status to penicillin; Z88.5 Allergy status to narcotic agent; Z87.891 Personal history of nicotine dependence; Z79.899 Other long term (current) drug therapy
CPT/HCPCS: 0241U; 36415; 36430; 71045; 74176; 80048; 80053; 80076; 81003; 82077; 82248; 82607; 82746; 82947; 83605; 83735; 84100; 85014; 85018; 85025; 85610; 86850; 86900; 86901; 86923; 87040; 87635; 88305; 88342; 93005; 96361; 96374; 96375; 97110; 97161; 99285; 99291; 99292; J0171; J2354; J2370; J3411; J3475; P9016; P9047